=== PATIENT | male | born 1935 | race Caucasian/White ===

== ENCOUNTER → 2023-06-01 11:30 | Outpatient (REF) | payer MEDICARE, BC, SELFPAY ==
[2023-06-01 14:35] LABS: PSA, Total - Diagnostic 6.66 ng/ml (0.0-4.0)
== END ==
LOC: OLABPATH 11:30
PROVIDERS: ATTENDING PHYSICIAN Internal Medicine
DX: N18.9 Chronic kidney disease, unspecified (principal); I10 Essential (primary) hypertension; E11.00 Type 2 diabetes mellitus with hyperosmolarity without nonketotic hyperglycemic-hyperosmolar coma (NKHHC); N40.0 Benign prostatic hyperplasia without lower urinary tract symptoms; N40.1 Benign prostatic hyperplasia with lower urinary tract symptoms
CPT/HCPCS: 36415; 84153

== ENCOUNTER → 2023-06-06 15:39 | Outpatient (REF) | payer MEDICARE, BC, SELFPAY | LOC: HWRAD 15:39 | PROVIDERS: ATTENDING PHYSICIAN Internal Medicine Critical Care Medicine; FAMILY PHYSICIAN Internal Medicine | DX: R06.02 Shortness of breath (principal); R93.89 Abnormal findings on diagnostic imaging of other specified body structures | CPT/HCPCS: 71250 ==

== ENCOUNTER → 2023-08-15 10:54 | Outpatient (REF) | payer MEDICARE, BC, SELFPAY ==
[2023-08-15 12:29] LABS: % Basophils 0.8 % (0-2); % Eosinophils 2.5 % (0-6); % Immature Granulocytes 0.3 % (0-0.5); % Lymphocytes 17.9 % (20.5-51.1); % Monocytes 6.9 % (1.7-9.3); % Neutrophils 71.6 % (42.2-75.2); Absolute Basophils 0.1 10^3/uL (0-0.2); Absolute Eosinophils 0.2 10^3/uL (0-0.7); Absolute Lymphocytes 1.1 10^3/uL (1.2-3.4); Absolute Monocytes 0.4 10^3/uL (0.1-0.6); Absolute Neutrophils 4.2 10^3/uL (1.4-6.5); Hematocrit 33.9 % (39.0-52.0); Hemoglobin 11.4 g/dL (13.0-18.0); Mean Corp Hgb Conc. 33.6 g/dL (33.0-37.0); Mean Corpuscular Hgb 31.1 pg (27.0-31.0); Mean Corpuscular Volume 92.6 fL (80.0-94.0); Mean Platelet Volume 10.1 fL (7.4-10.4); Nucleated Red Blood Cells % 0 % (-); Platelet Count 207 10^3/uL (130-400); Red Blood Cell Count 3.66 10^6/uL (4.70-6.10); White Blood Cell Count 5.9 10^3/uL (4.8-10.8)
[2023-08-15 12:45] LABS: ALT (SGPT) 19 U/L (0-50); AST (SGOT) 16 U/L (17-59); Albumin 3.2 g/dl (3.5-5.0); Alkaline Phosphatase 206 U/L (38-126); Blood Urea Nitrogen 23 mg/dl (9-20); Carbon Dioxide 29 mmol/L (22-30); Chloride 106 mmol/L (98-107); Glucose 154 mg/dl (70-99); Potassium 4.4 mmol/L (3.5-5.1); Sodium 138 mmol/L (135-145); Total Bilirubin 1.1 mg/dl (0.2-1.3); Total Protein 6.5 g/dl (6.3-8.2); eGFR 58.89
[2023-08-15 13:14] LABS: TSH 1.35 uIU/ml (0.47-4.68)
== END ==
LOC: OLABPATH 10:54
PROVIDERS: ATTENDING PHYSICIAN Internal Medicine
DX: I50.9 Heart failure, unspecified (principal); E03.9 Hypothyroidism, unspecified; I48.20 Chronic atrial fibrillation, unspecified
CPT/HCPCS: 36415; 80053; 84443; 85025

== ENCOUNTER → 2023-09-06 17:30 | Outpatient (REF) | payer MEDICARE, BC, SELFPAY ==
[2023-09-06 17:50] LABS: % Basophils 0.5 % (0-2); % Eosinophils 2.2 % (0-6); % Immature Granulocytes 0.3 % (0-0.5); % Lymphocytes 15.5 % (20.5-51.1); % Monocytes 7.3 % (1.7-9.3); % Neutrophils 74.2 % (42.2-75.2); Absolute Eosinophils 0.1 10^3/uL (0-0.7); Absolute Lymphocytes 0.9 10^3/uL (1.2-3.4); Absolute Monocytes 0.4 10^3/uL (0.1-0.6); Absolute Neutrophils 4.4 10^3/uL (1.4-6.5); Hematocrit 35.3 % (39.0-52.0); Hemoglobin 11.3 g/dL (13.0-18.0); Mean Corpuscular Hgb 30.7 pg (27.0-31.0); Mean Corpuscular Volume 95.9 fL (80.0-94.0); Mean Platelet Volume 10.7 fL (7.4-10.4); Nucleated Red Blood Cells % 0 % (-); Platelet Count 193 10^3/uL (130-400); Red Blood Cell Count 3.68 10^6/uL (4.70-6.10); Red Cell Dist. Width 14.9 % (11.5-14.5); White Blood Cell Count 5.9 10^3/uL (4.8-10.8)
[2023-09-06 18:02] LABS: ALT (SGPT) 17 U/L (0-50); AST (SGOT) 17 U/L (17-59); Albumin 3.4 g/dl (3.5-5.0); Alkaline Phosphatase 170 U/L (38-126); Blood Urea Nitrogen 24 mg/dl (9-20); Calcium 8.9 mg/dl (8.4-10.2); Carbon Dioxide 23 mmol/L (22-30); Chloride 104 mmol/L (98-107); Glucose 216 mg/dl (70-99); Potassium 4.7 mmol/L (3.5-5.1); Sodium 138 mmol/L (135-145); Total Bilirubin 0.9 mg/dl (0.2-1.3); Total Protein 6.7 g/dl (6.3-8.2); eGFR 58.89
== END ==
LOC: OLABPATH 17:30
PROVIDERS: ATTENDING PHYSICIAN Internal Medicine
DX: I10 Essential (primary) hypertension (principal); I48.91 Unspecified atrial fibrillation
CPT/HCPCS: 36415; 80053; 85025

== ENCOUNTER 2023-10-23 11:31 | Emergency (ER) | payer MEDICARE, BC, SELFPAY ==
[2023-10-23] VITALS (9 sets, daily range): BP systolic 113–140; BP diastolic 71–98; BMI 26.0
--- NOTE | 2023-10-23 11:51 | ED.GENMED ---
History of Present Illness
General
Chief Complaint: Abdominal Symptoms
Source: patient
Time Seen by Provider: 10/23/23 11:34
History of Present Illness
History of Present Illness:
88-year-old male presents emergency department complaints of right lower quadrant pain 'on and off' for the past 3 days, especially in the morning. He says sometimes it feels better when he moves around. Since arrival to the emergency department
the pain is just noticeable but very very mild. He has mild anorexia, and feels a dry mouth. He denies nausea, vomiting, fever, chills, chest pain, cough, sore throat, rhinorrhea, pain with urination, hematuria, constipation, diarrhea, or other
complaints. Patient has a history of known bilateral pleural effusions and states that sometimes it feels like he cannot fully get a deep breath although does not feel that way at this time.
Past History
Past History
ED Past Medical History: Arrthythmia (Atrial fibrillation), Cancer (Colon cancer), Hypercholesterolemia and NIDDM
ED Past Surgical History: Bowel resection and Orthopedic (Bilateral hip replacements, knee replacement, ankle surgery)
Social History
Tobacco: Non-smoker
Alcohol: Occasional
Drug: None
Personal:
Living: intermediate
Employment: Retired
Phy Exam
Physical Exam
Physical Exam:
GENERAL: Alert , in no apparent distress
EYE: pupils equal and reactive, left eye with vertical deviation baseline
NECK: Supple, no significant adenopathy.
ENT: o/p clr, mm dry
CARDIAC: Regular rate and rhythm .
LUNGS: Clear breath sounds bilaterally, no acute respiratory distress, no wheezes/rales/rhonchi, decreased breath sounds noted on right side, speaks in full sentences easily, no retractions
ABDOMEN: Soft, moderate right upper and lower quadrant tenderness, no r/g, no cvat
NEUROLOGICAL: Alert and oriented, no focal neuro deficits
SKIN: Warm and dry, skin intact.
MUSCULOSKELETAL: No edema, well perfused.
PSYCH: Normal and appropriate interaction.
Course
Orders/Labs/Results
Orders:
Orders
10/23/23 11:37
IV Insert/Care/Rem.- Treatment PRN
10/23/23 11:39
Complete Blood Count/With Diff Urgent
Comprehensive Metabolic Panel Urgent
Lipase Urgent
10/23/23 11:54
Cardiac Monitoring- Treatment ONCE
0.9% Sodium Chloride 250 ml [Nss] 250 ml IV BOLUS
10/23/23 11:55
CT Abd/Pel (IV only)-DH only Urgent
Comment:
Reason For Exam: rlq pain
10/23/23 12:56
UA Reflex to Culture [Urinalysis Reflex To Culture] Stat
Date Specimen was Collected: 10/23/23
Time Specimen was Collected: 12:55
Urine Microscopic Reflex Cult Stat
Urine Culture Stat
KALI Source: U
Specimen Description:
Date Specimen was Collected: 10/23/23
Time Specimen was Collected: 12:55
Abnormal Lab Results
10/23/23 10/23/23
11:39 12:56
RBC 3.88 L 10^6/uL
(4.70-6.10)
Hgb 11.7 L g/dL
(13.0-18.0)
Hct 35.3 L %
(39.0-52.0)
Absolute Lymphs (auto) 0.9 L 10^3/uL
(1.2-3.4)
Neutrophils % 76.1 H %
(42.2-75.2)
Lymphocytes % 12.9 L %
(20.5-51.1)
Glucose 154 H mg/dl
(70-99)
Total Bilirubin 1.6 H mg/dl
(0.2-1.3)
Alkaline Phosphatase 191 H U/L
(38-126)
Albumin 3.4 L g/dl
(3.5-5.0)
Lipase 22 L U/L
(23-300)
Ur Occult Blood Reflex 4+ A
(Negative)
Urine Urobilinogen 3+ A
(Neg - 1+)
Leukocyte Esterase Rfl 2+ A
(Negative)
Urine RBC 21-25 A /HPF
(0-2)
Urine WBC (Reflex) 80-90 A /HPF
(0-5)
10/23/23 11:39
10/23/23 11:39
Vital Signs
Initial and Last Documented VS:
Initial Vital Signs
Temp Pulse Resp
97.9 F 76 14
10/23/23 11:33 10/23/23 11:33 10/23/23 11:33
Last Documented Vital Signs
Temp Pulse Resp BP Pulse Ox
97.9 F 78 17 119/98 93
10/23/23 11:33 10/23/23 14:15 10/23/23 14:15 10/23/23 14:00 10/23/23 11:38
*Critical Care Note
Total Time (30-74mins, 75-104mins- exclusive of procedures): Not Applicable
Update Note
Update Note:
Patient presents to the Emergency Department with abdominal pain
Number and Complexity of Problems Addressed at the Encounter
� Chronic conditions affecting care:
� Acute Exacerbation and/or Progression of Chronic Illness:
� Differential Diagnosis includes: But not limited to appendicitis, cholecystitis, pyelonephritis, nephrolithiasis, colitis, hernia, etc. it is
Amount and/or Complexity of Data to be Reviewed and Analyzed
� I performed an independent evaluation of and my interpretation is:
EKG:
CT
IMPRESSION:
Moderate right pleural effusion (increased) and small left pleural effusion (without significant change) in comparison to prior CT April 03, 2023. Accompanying bilateral lower lobe subsegmental atelectasis, right greater than left.
No intestinal obstruction or free air. Colonic diverticulosis.
No right lower quadrant inflammatory changes.
No findings to suggest obstructive uropathy bilaterally.
Rectum filled with stool and mildly dilated, markedly limited in evaluation as a result of beam hardening artifact from bilateral hip arthroplasties. Cannot exclude stercoral colitis.
Small bilateral simple renal cysts and additional subcentimeter low-attenuation left renal lesions too small to characterize.
Prior cholecystectomy.
Xrays:
Laboratory Studies: Generally unremarkable, nonspecific LFT elevation mild
Other: ua suggestive of UTI given 80-90 wbc, le + etc
� Review of other/old records reveals:
� Clinical information was obtained by an independent historian: Bedside paperwork
� Prescriptions/Medications Considered but not given:
� Further testing considered but not performed:
Risk of Complications and/or Morbidity or Mortality of Patient Management
� Social determinants of health affecting care:
� Discussion with other providers (PCP, Hospitalists, Consultants, etc):
� Escalation of care including admission/observation vs risk of discharge considered:253pm. Pt aware of incresaing pleural effusion, states md aware and is managing as outpt, does not have sob/hypoxia, etc. Pt denies abd pain
and would like to go home, feels relieved appendix not enlarged, and states came to have this evaluated. Of note, u/a c/w uti, which may acocunt for sxs, will empirically tx while awaiting cx. D/w pt reasons to rted an dimport of f/u.
ED Attending Note
-
Portions of this chart may have been created with voice recognition software.� Occasional wrong word or��sound alike� substitutions may have occurred due to the inherent limitations of voice recognition software.
Discharge Plan
Departure
Patient Disposition: Home (Routine Discharge)
Date of Disposition: 10/23/23
Time of Disposition: 14:59
Patient with high blood pressure during this ER visit?: Yes
Condition: Good
Discharge Problem:
UTI, Abdominal pain
Instructions: Urinary Tract Infection, Adult ED, Abdominal Pain, BLOOD PRESSURE
Prescriptions:
New
amoxicillin-pot clavulanate 875-125 mg tablet
1 tab PO BID Qty: 14 0RF
No Action
tamsulosin 0.4 MG capsule
0.4 mg PO HS
atorvastatin [Lipitor] 40 mg Tablet
40 mg PO HS
acetaminophen [Tylenol] 325 mg Tablet
650 mg PO Q6HPRN PRN (Reason: mild pain/fever)
loperamide 2 mg Capsule
2 mg PO HS
magnesium hydroxide [Milk of Magnesia] 400 mg/5 mL Suspension
2,400 mg PO [id number] PRN (Reason: no bm on 3rd day)
duloxetine 20 mg Capsule,Delayed Release(Dr/Ec)
20 mg PO HS
ketoconazole 2 % Shampoo
1 applic TOPICAL .2-3 TIMES A WEEK
cyanocobalamin (vitamin B-12) 1,000 mcg Tablet
1,000 mcg PO DAILY
allopurinol 100 mg Tablet
100 mg PO DAILY
ferrous sulfate 325 mg (65 mg iron) Tablet
325 mg PO BID
alum-mag hydroxide-simeth [Mag-Al Plus] 200-200-20 mg/5 mL Suspension
30 ml PO Q4HPRN PRN (Reason: indigestion)
ketoconazole 2 % Cream
1 applic TOPICAL DAILY
vitamin E 268 mg (400 unit) Capsule
180 mg PO DAILY
insulin lispro 100 unit/mL Insulin Pen
0 sliding scale dose SC AC
Rx Instructions:
200-249=2units, 250-299=4units, 300-349=6units, 350-400=8units
cholecalciferol (vitamin D3) [Vitamin D3] 25 mcg (1,000 unit) Tablet
25 mcg PO DAILY
PreserVision AREDS-2 250-90-40-1 mg Capsule
1 tab PO DAILY
amiodarone [Pacerone] 200 mg tablet
200 mg PO DAILY
metoprolol succinate 25 mg tablet extended release 24 hr
12.5 mg PO DAILY
Eliquis 2.5 mg tablet
2.5 mg PO BID
loperamide 2 mg Capsule
2 mg PO DAILYPRN PRN (Reason: diarrhea)
Rx Instructions:
take 2 caps after first loose stool, then 1 cap after each loose stool
Referrals:
Umair Frias MD [Family Provider] - Follow up in 2-3 days
Activity Restrictions/Additional Instructions:
IF YOU DEVELOP INCREASING/NEW/PERSISTENT PAIN, FEVER, VOMITING, DIFFICULTY URINATING, BLEEDING, OR OTHER WORRISOME SIGNS, GO TO THE ER IMMEDIATELY! YOU HAVE AN INCREASE IN THE AMOUNT OF FLUID IN YOUR CHEST, WHICH NEEDS CLOSE FOLLOW UP.
Interventions
Interventions:
*Risk Screen - Suicide Last Done: 10/23/23 11:33
*General Assessment Last Done: 10/23/23 11:33
*Neglect/Abuse Screening Last Done: 10/23/23 11:33
*ED COVID-19 Vaccine History Last Done: 10/23/23 11:33
WW-Cwklsk-Qoptlrnzep Assessment Last Done: 10/23/23 11:33
Discharge Date and Time
Print Language: PORTUGUESE
[2023-10-23] MEDS: NSS 250 IV (12:05)
[2023-10-23 12:10] LABS: ALT (SGPT) 15 U/L (0-50); AST (SGOT) 17 U/L (17-59); Albumin 3.4 g/dl (3.5-5.0); Alkaline Phosphatase 191 U/L (38-126); Blood Urea Nitrogen 18 mg/dl (9-20); Carbon Dioxide 29 mmol/L (22-30); Chloride 102 mmol/L (98-107); Estimated Creatinine Clearance 50 ml/min; Glucose 154 mg/dl (70-99); Lipase 22 U/L (23-300); Potassium 4.5 mmol/L (3.5-5.1); Sodium 137 mmol/L (135-145); Total Bilirubin 1.6 mg/dl (0.2-1.3); Total Protein 6.8 g/dl (6.3-8.2); eGFR > 60.00
[2023-10-23 12:17] LABS: % Basophils 0.6 % (0-2); % Eosinophils 2.7 % (0-6); % Immature Granulocytes 0.3 % (0-0.5); % Lymphocytes 12.9 % (20.5-51.1); % Monocytes 7.4 % (1.7-9.3); % Neutrophils 76.1 % (42.2-75.2); Absolute Eosinophils 0.2 10^3/uL (0-0.7); Absolute Lymphocytes 0.9 10^3/uL (1.2-3.4); Absolute Monocytes 0.5 10^3/uL (0.1-0.6); Absolute Neutrophils 5.1 10^3/uL (1.4-6.5); Hematocrit 35.3 % (39.0-52.0); Hemoglobin 11.7 g/dL (13.0-18.0); Mean Corp Hgb Conc. 33.1 g/dL (33.0-37.0); Mean Corpuscular Hgb 30.2 pg (27.0-31.0); Mean Platelet Volume 9.5 fL (7.4-10.4); Nucleated Red Blood Cells % 0 % (-); Platelet Count 250 10^3/uL (130-400); Red Blood Cell Count 3.88 10^6/uL (4.70-6.10); Red Cell Dist. Width 14.4 % (11.5-14.5); White Blood Cell Count 6.7 10^3/uL (4.8-10.8)
[2023-10-23 13:16] LABS: Urine Albumin Trace (Neg - Trace); Urine Bilirubin Negative (Negative); Urine Character Slightly Cloudy (Clear); Urine Color Yellow; Urine Glucose Negative (Negative); Urine Ketone Negative (Negative); Urine Leukocyte 2+ (Negative); Urine Nitrite Negative (Negative); Urine Occult Blood 4+ (Negative); Urine Urobilinogen 3+ (Neg - 1+); Urine pH 6.5 (5.0-9.0)
[2023-10-23 14:46] LABS: Urine Red Blood Cell 21-25 /HPF (0-2)
[2023-10-23 14:47] LABS: Urine White Cell 80-90 /HPF (0-5)
== END 2023-10-23 19:24 | disposition home or self-care (01) ==
LOC: EMR 11:31
PROVIDERS: EMERGENCY PHYSICIAN Emergency Medicine; FAMILY PHYSICIAN Internal Medicine
DX: N39.0 Urinary tract infection, site not specified (principal); R10.31 Right lower quadrant pain; J90 Pleural effusion, not elsewhere classified; I48.91 Unspecified atrial fibrillation; E78.00 Pure hypercholesterolemia, unspecified; E11.9 Type 2 diabetes mellitus without complications; R68.2 Dry mouth, unspecified; Z85.038 Personal history of other malignant neoplasm of large intestine; Z90.49 Acquired absence of other specified parts of digestive tract; Z96.643 Presence of artificial hip joint, bilateral; Z96.659 Presence of unspecified artificial knee joint
CPT/HCPCS: 99284; 74177; 80053; 81003; 81015; 83690; 85025; 87086; Q9967

== ENCOUNTER → 2023-11-01 11:25 | Outpatient (REF) | payer MEDICARE, BC, SELFPAY ==
[2023-11-01 13:26] LABS: ALT (SGPT) 15 U/L (0-50); AST (SGOT) 19 U/L (17-59); Albumin 3.2 g/dl (3.5-5.0); Alkaline Phosphatase 169 U/L (38-126); Blood Urea Nitrogen 17 mg/dl (9-20); Calcium 8.8 mg/dl (8.4-10.2); Carbon Dioxide 27 mmol/L (22-30); Chloride 102 mmol/L (98-107); Glucose 157 mg/dl (70-99); Potassium 4.2 mmol/L (3.5-5.1); Sodium 136 mmol/L (135-145); Total Bilirubin 1.1 mg/dl (0.2-1.3); Total Protein 6.6 g/dl (6.3-8.2); eGFR > 60.00
[2023-11-01 13:43] LABS: % Basophils 0.7 % (0-2); % Eosinophils 3.1 % (0-6); % Immature Granulocytes 0.4 % (0-0.5); % Lymphocytes 10.2 % (20.5-51.1); % Monocytes 8.4 % (1.7-9.3); % Neutrophils 77.2 % (42.2-75.2); Absolute Basophils 0.1 10^3/uL (0-0.2); Absolute Eosinophils 0.2 10^3/uL (0-0.7); Absolute Lymphocytes 0.7 10^3/uL (1.2-3.4); Absolute Monocytes 0.6 10^3/uL (0.1-0.6); Absolute Neutrophils 5.2 10^3/uL (1.4-6.5); Hematocrit 31.1 % (39.0-52.0); Hemoglobin 10.5 g/dL (13.0-18.0); Mean Corp Hgb Conc. 33.8 g/dL (33.0-37.0); Mean Corpuscular Hgb 30.3 pg (27.0-31.0); Mean Corpuscular Volume 89.9 fL (80.0-94.0); Mean Platelet Volume 9.7 fL (7.4-10.4); Nucleated Red Blood Cells % 0 % (-); Platelet Count 289 10^3/uL (130-400); Red Blood Cell Count 3.46 10^6/uL (4.70-6.10); Red Cell Dist. Width 14.3 % (11.5-14.5); White Blood Cell Count 6.8 10^3/uL (4.8-10.8)
== END ==
LOC: OLABPATH 11:25
PROVIDERS: ATTENDING PHYSICIAN Internal Medicine
DX: I10 Essential (primary) hypertension (principal); E78.49 Other hyperlipidemia
CPT/HCPCS: 36415; 80053; 85025

== ENCOUNTER → 2023-11-06 07:09 | Outpatient (REF) | payer MEDICARE, BC, SELFPAY | LOC: RAD 07:09 | PROVIDERS: ATTENDING PHYSICIAN Internal Medicine | DX: E04.1 Nontoxic single thyroid nodule (principal) | CPT/HCPCS: 78014; A9516 ==

== ENCOUNTER 2023-11-20 20:28 | Inpatient (IN) | payer MEDICARE, BC, SELFPAY ==
[2023-11-20 13:27] VITALS: BMI 24.7
[2023-11-20 13:43] VITALS: BP 111/66
[2023-11-20 13:54] LABS: % Basophils 0.2 % (0-2); % Eosinophils 0.9 % (0-6); % Immature Granulocytes 0.5 % (0-0.5); % Lymphocytes 6.9 % (20.5-51.1); % Neutrophils 83.5 % (42.2-75.2); Absolute Eosinophils 0.1 10^3/uL (0-0.7); Absolute Lymphocytes 0.6 10^3/uL (1.2-3.4); Absolute Monocytes 0.7 10^3/uL (0.1-0.6); Absolute Neutrophils 7.2 10^3/uL (1.4-6.5); Hematocrit 31.1 % (39.0-52.0); Hemoglobin 10.6 g/dL (13.0-18.0); Mean Corp Hgb Conc. 34.1 g/dL (33.0-37.0); Mean Corpuscular Hgb 29.9 pg (27.0-31.0); Mean Corpuscular Volume 87.6 fL (80.0-94.0); Mean Platelet Volume 9.7 fL (7.4-10.4); Nucleated Red Blood Cells % 0 % (-); Platelet Count 279 10^3/uL (130-400); Red Blood Cell Count 3.55 10^6/uL (4.70-6.10); Red Cell Dist. Width 14.8 % (11.5-14.5); White Blood Cell Count 8.7 10^3/uL (4.8-10.8)
--- NOTE | 2023-11-20 14:09 | ED.GENMED ---
History of Present Illness
General
Chief Complaint: Abdominal Pain
Time Seen by Provider: 11/20/23 13:43
History of Present Illness
History of Present Illness:
88-year-old male with history of atrial fibrillation, CKD, biq-arozvbk-cdvaeapwy diabetes, hypertension, and hyperlipidemia presents to the emergency department for evaluation of lower abdominal pain for the past several days. He had a similar
presentation 1 month ago and reports the pain is the same, at that time was diagnosed with a urinary tract infection and discharged. CT scan at that time was unremarkable. He denies any fevers or chills. States his appetite has been poor but this
has been ongoing for several weeks
Past History
Past History
ED Past Medical History: Arrthythmia (Atrial fibrillation), Cancer (Colon cancer), Hypercholesterolemia and NIDDM
ED Past Surgical History: Bowel resection and Orthopedic (Bilateral hip replacements, knee replacement, ankle surgery)
Social History
Tobacco: Non-smoker
Alcohol: Occasional
Drug: None
Personal:
Living: retirement
Employment: Retired
Review of Systems
Review of Systems
Allergies reviewed?: Yes
All Other Systems: ROS reviewed and negative except as documented in HPI and ROS
Phy Exam
Physical Exam
Physical Exam:
GEN: Well appearing, NAD, WDWN
Eyes: PERRLA, EOMs intact, no scleral icterus
HENT: NCAT, oral mucosa moist
Lungs: CTAB, no wheezes, rales, rhonchi, normal chest wall excursion
Cardiac: RRR, no M/R/G, no peripheral edema. Radial pulses 2+ bilat
Abdomen: Soft, focal tenderness to the right lower quadrant
Neuro: AO x 3
MSK: No gross deformity or ecchymosis. No edema. No digital clubbing
Skin: No rashes, petechiae. Normal color, no pallor or jaundice.
Psych: Calm, cooperative, proper hygiene
Course
Orders/Labs/Results
Orders:
Orders
11/20/23 13:46
Basic Metabolic Panel Urgent
Complete Blood Count/With Diff Urgent
Lipase Urgent
11/20/23 15:27
Urinalysis Reflex To Culture Urgent
Date Specimen was Collected: 11/20/23
Time Specimen was Collected: 15:25
Urine Microscopic Reflex Cult Urgent
Urine Culture Urgent
KALI Source: U
Specimen Description:
Date Specimen was Collected: 11/20/23
Time Specimen was Collected: 15:25
11/20/23 17:25
CT Abd/Pel (IV only)-DH only Urgent
Comment:
Reason For Exam: RLQ pain
11/20/23 18:36
Piperacillin/Tazo 3.375 Gram [Zosyn] 3.375 gram in 50 ml IV NOW
11/20/23 19:14
Admit/Transfer Patient As Directed
Co-Sign Provider:
Level of Care: Inpatient admission
Assign to:: Telemetry
Physician / Group: [email or web address]
Diagnosis: Rectus sheath presumed abscess
Reason for Telemetry: Arrhythmia
Date to Stop Telemetry: 11/23/23
Time to Stop Telemetry: 11:00
Reason for Hospitalization: Rectus sheath presumed abscess
Suspect rectus sheath hematoma complicated by superinfection or abscess
Expected length of stay greater than two midnights?: Yes
ELOS- Estimated Length of Stay in days: 3
I certify the patient meets the requirements for IP care: Yes
11/20/23 19:17
Code Status As Directed
Resuscitation Status: Do not resuscitate
Based on pt advanced directive or healthcare POA form: Yes
DNR Bracelet Application ONCE
11/23/23 11:00
DC Protocol for Telemetry ONCE
Abnormal Lab Results
11/20/23 11/20/23
13:46 15:27
RBC 3.55 L 10^6/uL
(4.70-6.10)
Hgb 10.6 L g/dL
(13.0-18.0)
Hct 31.1 L %
(39.0-52.0)
RDW 14.8 H %
(11.5-14.5)
Absolute Neuts (auto) 7.2 H 10^3/uL
(1.4-6.5)
Absolute Lymphs (auto) 0.6 L 10^3/uL
(1.2-3.4)
Absolute Monos (auto) 0.7 H 10^3/uL
(0.1-0.6)
Neutrophils % 83.5 H %
(42.2-75.2)
Lymphocytes % 6.9 L %
(20.5-51.1)
Sodium 132 L mmol/L
(135-145)
BUN 26 H mg/dl
(9-20)
Glucose 208 H mg/dl
(70-99)
Lipase 16 L U/L
(23-300)
Urine Ketones Trace A
(Negative)
Ur Occult Blood Reflex Trace A
(Negative)
Urine Bilirubin 1+ A
(Negative)
Urine Urobilinogen 3+ A
(Neg - 1+)
Leukocyte Esterase Rfl 2+ A
(Negative)
Urine RBC 7-10 A /HPF
(0-2)
Urine WBC (Reflex) 30-40 A /HPF
(0-5)
11/20/23 13:46
11/20/23 13:46
Vital Signs
Initial and Last Documented VS:
Initial Vital Signs
Temp Pulse Resp BP Pulse Ox
97.5 F 78 13 111/66 95
11/20/23 13:43 11/20/23 13:43 11/20/23 13:43 11/20/23 13:43 11/20/23 13:43
Last Documented Vital Signs
Temp Pulse Resp BP Pulse Ox
97.5 F 85 19 121/78 96
11/20/23 18:54 11/20/23 20:00 11/20/23 19:45 11/20/23 17:00 11/20/23 18:54
MDM/Problems Addressed
MDM/Problems Addressed:
Imaging is suspicious for a rectus sheath fluid collection most likely abscess given the rapid development and lack of trauma compared to scan from 1 month ago. Will admit on empiric IV antibiotics for IR consultation and further management as
appropriate
*Critical Care Note
Total Time (30-74mins, 75-104mins- exclusive of procedures): Not Applicable
ED Attending Note
-
Portions of this chart may have been created with voice recognition software.� Occasional wrong word or��sound alike� substitutions may have occurred due to the inherent limitations of voice recognition software.
Discharge Plan
Departure
Patient Disposition: Admit
Date of Disposition: 11/20/23
Time of Disposition: 18:36
Presentation/result/management discussed w/ accepting MD/DO: Hospitalist
Discharge Problem:
Abscess of rectus sheath
Prescriptions:
No Action
tamsulosin 0.4 MG capsule
0.4 mg PO HS
atorvastatin [Lipitor] 40 mg Tablet
40 mg PO HS
acetaminophen [Tylenol] 325 mg Tablet
650 mg PO Q6HPRN MDD 3000 mg PRN (Reason: mild pain)
loperamide 2 mg Capsule
2 mg PO HS
magnesium hydroxide [Milk of Magnesia] 400 mg/5 mL Suspension
30 ml PO [id number] PRN (Reason: no bm on 3rd day)
duloxetine 20 mg Capsule,Delayed Release(Dr/Ec)
20 mg PO HS
ketoconazole 2 % Shampoo
1 applic TOPICAL .2-3 TIMES A WEEK
cyanocobalamin (vitamin B-12) 1,000 mcg Tablet
1,000 mcg PO DAILY
allopurinol 100 mg Tablet
100 mg PO DAILY
ferrous sulfate 325 mg (65 mg iron) Tablet
325 mg PO BID
alum-mag hydroxide-simeth [Mag-Al Plus] 200-200-20 mg/5 mL Suspension
30 ml PO Q4HPRN PRN (Reason: indigestion)
ketoconazole 2 % Cream
1 applic TOPICAL DAILY
vitamin E 268 mg (400 unit) Capsule
180 mg PO DAILY
insulin lispro 100 unit/mL Insulin Pen
0 sliding scale dose SC AC
Rx Instructions:
200-249=2units, 250-299=4units, 300-349=6units, 350-400=8units
cholecalciferol (vitamin D3) [Vitamin D3] 25 mcg (1,000 unit) Tablet
25 mcg PO DAILY
PreserVision AREDS-2 250-90-40-1 mg Capsule
1 tab PO DAILY
amiodarone [Pacerone] 200 mg tablet
200 mg PO DAILY
metoprolol succinate 25 mg tablet extended release 24 hr
12.5 mg PO DAILY
Eliquis 2.5 mg tablet
2.5 mg PO BID
loperamide 2 mg Capsule
2 mg PO DAILYPRN PRN (Reason: diarrhea)
Rx Instructions:
take 2 caps after first loose stool, then 1 cap after each loose stool
Referrals:
Patrick Graves DO [Family Provider] -
Discharge Date and Time
Print Language: ESTONIAN
[2023-11-20 14:12] LABS: Blood Urea Nitrogen 26 mg/dl (9-20); Calcium 8.5 mg/dl (8.4-10.2); Carbon Dioxide 24 mmol/L (22-30); Chloride 103 mmol/L (98-107); Estimated Creatinine Clearance 62 ml/min; Glucose 208 mg/dl (70-99); Lipase 16 U/L (23-300); Sodium 132 mmol/L (135-145); eGFR > 60.00
[2023-11-20 15:32] VITALS: BP 124/73
[2023-11-20 16:00] VITALS: BP 115/72
[2023-11-20 16:01] LABS: Urine Albumin Trace (Neg - Trace); Urine Bilirubin 1+ (Negative); Urine Character Slightly Cloudy (Clear); Urine Color Amber; Urine Glucose Negative (Negative); Urine Ketone Trace (Negative); Urine Leukocyte 2+ (Negative); Urine Nitrite Negative (Negative); Urine Occult Blood Trace (Negative); Urine Specific Gravity 1.025 (<1.030); Urine Urobilinogen 3+ (Neg - 1+)
[2023-11-20 17:00] VITALS: BP 121/78
[2023-11-20 17:25] LABS: Urine Mucus Few
[2023-11-20 17:26] LABS: Urine White Cell 30-40 /HPF (0-5)
[2023-11-20] MEDS: ZOSYN 50 IV (18:50)
--- NOTE | 2023-11-20 19:10 | HPS.HSE ---
Family Physician
-
Family Physician: Patrick Graves
Chief Complaint
-
persistent lower abdominal pain
History of Present Illness
HPI
88M on chr Eliquis for Prx AF, IDDM, HX b/l pleural effusion seen at ER evaluation of lower abdominal pain for the past several days. He presents to ER for simialr pain. Dxed clinical UTI but mixed floral growth seen at ER on treated with
Augmentin for 2 weeks as out patient as of 10/23/23. Unremarkable CT AP on 10/23/23.
- denied trauma
ROS
denies any fevers or chills.
Poor appetite for several weeks
Medical History
Past Medical History
Past Medical History: Reports Arrhythmia (atrial fibrillation), Cancer (colon), HTN, Hypercholesterolemia and IDDM
Past Surgical History: Reports Bowel Resection and Orthopedic (bilateral hip replacements, knee replacement, ankle surgery)
Social History
Tobacco: Non-smoker
Alcohol: Occasional
Drug: None
Personal: ( this past March)
Living: Longterm (Assisted living/nursing facility)
Employment: Retired
Family History
Family History: Not pertinent
Allergies / Home Medications
Allergies reflects when Allergies were last updated in [facility].
Home Medications with original date entered in [facility]
Allergy/Medication List:
Allergies
Allergy/AdvReac Type Severity Reaction Status Date / Time
oyster Allergy Unknown Uncoded 09/13/21 16:30
Home Medications
allopurinol 300 mg tablet 100 mg PO DAILY 06/05/19
metoprolol succinate 25 mg tablet,extended release 24 hr 12.5 mg PO BID 06/05/19
apixaban 5 mg tablet (Eliquis) 5 mg PO BID 01/17/20
ascorbate calcium (vitamin C) 500 mg tablet 500 mg PO DAILY 07/17/21
atorvastatin 40 mg tablet 40 mg PO DAILY 07/17/21
cholecalciferol (vitamin D3) 25 mcg (1,000 unit) capsule (Vitamin D3) 1,000 unit PO DAILY 07/17/21
cyanocobalamin (vitamin B-12) 2,000 mcg tablet 2,000 mcg PO DAILY 07/17/21
dapagliflozin 10 mg tablet (Farxiga) 10 mg PO DAILY 07/17/21
furosemide 20 mg tablet 20 mg PO DAILY 07/17/21
insulin glargine 100 unit/mL subcutaneous solution (Lantus U-100 Insulin) 10 units SC HS 07/17/21
insulin lispro 100 unit/mL subcutaneous pen (Humalog KwikPen (U-100) Insulin) 0 units SC TID 07/17/21
linagliptin 5 mg tablet (Tradjenta) 5 mg PO DAILY 07/17/21
metformin 500 mg tablet 500 mg PO BID 07/17/21
tamsulosin 0.4 mg capsule 0.4 mg PO DAILY 07/17/21
vit A 7,160 unit-vit C 113 mg-vit N-yyxo-fbsedr-lutein 0.5 mg tablet (Ocular Vitamins) 1 ea PO DAILY 07/17/21
vitamin E 268 mg (400 unit) capsule 400 unit PO DAILY 07/17/21
Review of Systems
-
Constitutional: Reports No Symptoms
EENT: Reports No Symptoms
Respiratory: Reports No Symptoms
Cardiac: Reports No Symptoms
Abdomen/GI: Reports Abdominal Pain
: Reports No Symptoms
Musculoskeletal: Reports No Symptoms
Skin: Reports No Symptoms
Neurological: Reports No Symptoms
Endocrine: Reports No Symptoms
Hematologic/Lymphatic: Reports No Symptoms
Psych: Reports No Symptoms
Physical Exam
Vital Signs
Vital Signs
Temp Pulse Resp BP Pulse Ox
97.5 F 78 24 124/73 96
11/20/23 18:54 11/20/23 18:54 11/20/23 18:54 11/20/23 15:32 11/20/23 18:54
Physical Exam
General: No Apparent Distress and Conversant
HEENT: NormoCephalic, Anicteric and Moist mucous membranes
Respiratory: Clear; No Wheezes, Rales or Rhonchi
Cardiac: S1/S2 and Regular Rhythm; No Murmur
Breast: Deferred by me
GI: Soft and Tender (focal tenderness to the right lower quadrant)
Rectal: Deferred by Provider
Genito-urinary: Deferred by me
Musculoskeletal: No Edema
Skin: Warm
Neuro: AO x 3 and Nonfocal/grossly intact
Psych: Calm
Laboratory Results
-
11/20/23 13:46
11/20/23 13:46
Laboratory Results
Total Bilirubin Cancelled 11/20/23 13:46
AST Cancelled 11/20/23 13:46
ALT Cancelled 11/20/23 13:46
Alkaline Phosphatase Cancelled 11/20/23 13:46
Lipase 16 U/L (23-300) L 11/20/23 13:46
Data Reviewed
-
CT Scan: Report Reviewed by me
Lab Data: Labs Reviewed by me
Old Records: Reviewed
Impression/Plan
-
Reviewed VS: Afebrile . Stable VSS
Data
WCC 8.7
Hgb 10.6 - baseline mid 10s
nl Plt
Na 132
BUN 26
nl Cr
nl eGFR
Abn UA with WCC 30-40, RBC 7-10 , 2 + LE, NEG Nitrites
CT Abd/Pel (IV only)-DH only
Area of heterogeneous density in the right lower quadrant most likely with epicenter in the right anterior abdominal wall, low-attenuation centrally and soft tissue density peripherally measuring approximately 5 x 9 x 4.5 cm. Most likely
differential diagnostic possibility would be a rectus sheath hematoma, possibly with superinfection or abscess proper. Rectus sheath mass would be unlikely but cannot be entirely excluded.
Bilateral renal cysts as well as additional subcentimeter low-attenuation renal lesions too small to characterize.
Moderate right pleural effusion without significant change. Decreased tiny left pleural effusion.
Prior cholecystectomy. Mild extrahepatic biliary tract dilatation which may be the sequela of prior cholecystectomy. Suggest correlation with LFTs.
Last hospitalist admission: 01/06/23 - 01/11/23
1. Tachyarrhythmia, atrial fibrillation with rapid ventricular response as well as ventricular tachycardia.
1. Cardiomyopathy with decreased ejection fraction of 45%-50%.
2. Type 2 diabetes, insulin requiring.
3. Chronic kidney disease, stage 3B, with baseline creatinine around 1.3 with acute kidney injury over this admission.
4. Urinary tract infection ruled out.
ASSESSMENT & PLAN
Rectus sheath presumed abscess
Suspect rectus sheath hematoma complicated by superinfection or abscess
- No prior HX MRSA screen
- Held Eliquis, Vit E
- Empiric IV Zosyn
- IR consult aspiration and Cx
- ID consult for ABx
HX Prx AF on Eliquis
HX Afib with RVR vs. VT:
- Status post electrical cardioversion resulting in bradycardia ( Dec 2022) needed dopamine gtt for bradycardia
- held eliquis and Vit E
- S/P ICD implant ( [facility] card)
Cardiomyopathy HX with EF 40-45
Last known echo 07/05 with LVEF 45-50% and global hypokinesis
- Lasix is not on current list
- daily Wt
Persistent abn UA; denied current dysurai, frequency and urgency
Recent UTI with mixed floral growth & ) s/p Augmentin for 2 weeks
- await UCx
- Currently on Zosyn for rectus sheath abscess
- await ID input
HX T2 DM with Insulin requirement
-Continue home medications: Farxiga, insulin Tradjenta
- add Low dose ISS PRN Basal bolus
DVT Px: SCD
Code: DNR confirmed by patient in the presence of [employer]ESS[employer] MACHINE [employer]EDER.
IP TLM
[2023-11-20 22:29] LABS: Glucose - Point of Care 181 mg/dl (70-99)
[2023-11-20] MEDS: FLOMAX 0.4 MG PO (22:46)
[2023-11-20] MEDS: LIPITOR 40 MG PO (22:46)
[2023-11-20] MEDS: CYMBALTA DELAYED RELEASE 20 MG PO (22:46)
[2023-11-20] MEDS: FEOSOL PO (23:17)
--- NOTE | 2023-11-20 23:19 | PTCARENOTE ---
Pt aaox2-3,forgetful at times, able to make his needs known.Pt doesn't like to be bothered much & wants to sleep. Pt irritated with staff,when trying to ask more admission questions.Pt on a bedalarm & fall precautions maintained.Call yarbrough in reach.
[2023-11-20 23:27] VITALS: BP 120/74
[2023-11-20 23:29] VITALS: BMI 23.7
[2023-11-21] VITALS (10 sets, daily range): BP systolic 71–115; BP diastolic 62–75; BMI 23.7; BMI 23.6
[2023-11-21] MEDS: ZOSYN 50 IV ×3 (01:02→11:00)
[2023-11-21 07:11] LABS: Glucose - Point of Care 159 mg/dl (70-99)
[2023-11-21 08:12] LABS: Hematocrit 31.6 % (39.0-52.0); Hemoglobin 10.6 g/dL (13.0-18.0); Mean Corp Hgb Conc. 33.5 g/dL (33.0-37.0); Mean Corpuscular Hgb 30.5 pg (27.0-31.0); Mean Corpuscular Volume 90.8 fL (80.0-94.0); Mean Platelet Volume 9.4 fL (7.4-10.4); Platelet Count 264 10^3/uL (130-400); Red Blood Cell Count 3.48 10^6/uL (4.70-6.10); Red Cell Dist. Width 14.8 % (11.5-14.5); White Blood Cell Count 7.3 10^3/uL (4.8-10.8)
[2023-11-21 08:13] LABS: INR 1.61
[2023-11-21] MEDS: NOVOLOG FLEXPEN-LOW RESISTANCE SC (08:30)
[2023-11-21] MEDS: NIZORAL SHAMPOO 120 ML TOPICAL (08:30)
[2023-11-21] MEDS: TOPROL XL 12.5 MG PO (08:31)
[2023-11-21] MEDS: FEOSOL 325 MG PO (08:31)
[2023-11-21] MEDS: PACERONE 200 MG PO (08:31)
[2023-11-21] MEDS: ZYLOPRIM 100 MG PO (08:31)
[2023-11-21 08:35] LABS: Blood Urea Nitrogen 23 mg/dl (9-20); Calcium 8.9 mg/dl (8.4-10.2); Carbon Dioxide 28 mmol/L (22-30); Chloride 102 mmol/L (98-107); Estimated Creatinine Clearance 55 ml/min; Glucose 142 mg/dl (70-99); Potassium 3.5 mmol/L (3.5-5.1); Sodium 135 mmol/L (135-145); eGFR > 60.00
[2023-11-21 08:37] LABS: Glycohemoglobin (HgbA1c) 8.2 % (4.0-5.6)
--- NOTE | 2023-11-21 10:40 | W.PN.HOSP.TC ---
Today's Communication/Plan
-
Hold Eliquis in preparation of IR aspiration
Continue with IV antibiotics, follow-up ID recs
Trend CBC
Assessment / Plan
Assessment / Plan
#Rectus sheath abscess versus hematoma
-Suspect rectus sheath hematoma complicated by superinfection or abscess
-Patient states he has had falls fairly recently, may be contributing as site of trauma
-No history of MRSA, MRSA screen was ordered and results are pending
-No signs of ongoing bleeding, hemoglobin stable per CBC this morning
-IR consulted, Eliquis held in anticipation of aspiration and culture
-Remains on IV Zosyn empirically for broad-spectrum coverage
-ID following
#H/O Paroxysmal AF on Eliquis
#H/O VT S/P AICD
-Status post electrical cardioversion resulting in bradycardia ( Dec 2022) needed dopamine gtt for bradycardia
-Home regimen includes reduced dose Eliquis for AC, low-dose metoprolol and amiodarone for rate/rhythm control
-Eliquis currently on hold for planned IR aspiration
-Hemodynamically stable, heart rate WNL and appears NSR this
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
-GDMT includes low-dose beta-andrés; no MARLY/ARB, MRA, SGLT2 at this
-Is not currently on any standing diuretic regimen; seems well compensated
-Appears euvolemic today, no indication for diuretics, will monitor I's and O's and weights
#Persistently abnormal UA
#Recent UTI with mixed fritz growth, s/p Augmentin for 2 weeks
-No symptoms at this time, suspect that this is colonization
-Remains on Zosyn for above issues, provides good urine coverage as well
#Insulin-dependent type 2 diabetes mellitus
-No recent A1c, no known micro or macrovascular complications
-Home medications include Farxiga, Tradjenta, short acting insulin
-Oral agents stopped on admission, started on ISS with as needed basal bolus
-Glucose at goal today
DVT Pphx: SCD
CODE STATUS: DNR
Diet: Regular
Anticipated Discharge: 24 - 48 hours
Subjective/Interval History
-
Date of Service: November 21, 2023
Seen and examined at the bedside. Minimal pain without provocation. Denies fevers or chills, denies chest pain or shortness of breath. Questioning when he can eat, per IR he does not need to be n.p.o., order was put in for a diet
Objective Data
-
Labs:
Laboratory Results
11/21/23
07:44
WBC 7.3
Hgb 10.6 L
Hct 31.6 L
Plt Count 264
PT 19.0 H
INR 1.61
Sodium 135
Potassium 3.5
Chloride 102
Carbon Dioxide 28
BUN 23 H
Creatinine 1.0
Glucose 142 H
Calcium 8.9
Vital Signs:
Vital Signs
Temp Pulse Resp BP Pulse Ox
97.6 F 77 18 108/68 97
11/21/23 08:04 11/21/23 08:04 11/21/23 08:04 11/21/23 08:04 11/21/23 08:04
I&O
11/20/23 11/21/23 11/22/23
06:59 06:59 06:59
Intake Total 0 / 0
Balance 0 / 0
Review of Systems
-
History Source: Patient
Constitutional: Reports No Symptoms
Respiratory: Reports No Symptoms
Cardiac: Reports No Symptoms
Abdomen/GI: Reports No Symptoms
Genitourinary: Reports No Symptoms
Musculoskeletal: Reports No Symptoms
Skin: Reports No Symptoms
Neuro: Reports No Symptoms
Physical Exam
-
General: Well Nourished, No Apparent Distress and Comfortable
HEENT: Normocephalic, Atraumatic and Moist Mucous Membranes
Respiratory: Clear to Auscultation and Non Labored Respirations; Negative Wheezes or Rales
Cardiac: Regular Rhythm and S1/S2
GI: Soft, Nontender, Nondistended and Other (Slightly reduced bowel sounds)
Musculoskeletal: No Clubbing, No Cyanosis, No Edema and Other (Tenderness to RLQ palpation, near site of fullness, no peritoneal signs)
Skin: Warm and Dry; Negative Rash or Jaundice
Neuro: AO x 3, Nonfocal/Grossly Intact and Central Nerve's Intact
Hematologic / Lymphatic: No Lymphadenopathy
Data Reviewed
-
Labs: Labs Reviewed by me
--- NOTE | 2023-11-21 11:08 | CON.ID ---
Consultation
-
Date/Time Consultation Requested: November 20, 20233
Date/Time Consultation Performed: November 21, 2023 1110
Requesting Provider: Dr. Qasim Howard
Performing Provider: Dr. Dottie Chou
Reason for Consultation: Rectus sheath hematoma vs abscess
Chief Complaint / Past History
Chief Complaint
Right lower abdominal pain
History of Present Illness
88-year-old male with history of diabetes mellitus, atrial fibrillation on Eliquis who presented to the ER November 19 with persistent right lower abdominal pain. He states the pain started in early October and described as a dull ache, intermittent. He
presented to the ER on October 22, CAT scan of the abdomen pelvis with IV contrast no acute change. He was complaining of gross hematuria at that time in ER treated him for presumed UTI with Augmentin x 2 weeks. Patient continued to have worsening
right abdominal pain. No fevers or chills. No diarrhea. He thought maybe it was appendicitis and therefore presented back to the hospital November 19. He is afebrile. Normal white count. CAT scan of the abdomen and pelvis with IV contrast now
shows a 5 x 9 x 4.5 cm had a real genius density in the right anterior abdominal wall most likely rectus sheath hematoma, possibly abscess. Patient was started on Zosyn. Interventional radiology has been consulted for drainage. Patient has been
having poor appetite for the past few months. He denies any trauma or injury to the abdomen. He had been falling frequently in the past. Last fall was 3 months ago. He lives in a long-term now. No urinary symptoms. No flank pain.
Past History
Additional Past Medical History:
DM
Afib on Eliquis
HF EF 40-45%
HLD
Chronic bilateral pleural effusions
BPH
gout
Colon ca s/p resection
Cholecystectomy
Bilateral FRANSISCO
Left TKA
Allergy History:
oyster extract Allergy (Verified 11/20/23 13:42)
OYSTER-UNKNOWN REACTION
shellfish derived Allergy (Verified 11/20/23 13:42)
OYSTER-UNKNOWN REACTION
Medications Reviewed: Yes
Current Antibiotics:
Zosyn
Social History
Tobacco: Non-Smoker
Alcohol: Occasional
Drug: None
Living: [facility]
Family History
Family History: Not Pertinent
Review of Systems
Review of Systems
General: Change in Appetite; Negative Fever or Chills
HEENT: Negative Sinus Problems, Headache or Pharyngitis
Cardiovascular: Negative Chest Pain or Dyspnea
Respiratory: Negative Dyspnea or Cough
Gasteroenterology: Other (no diarrhea); Negative Nausea or Vomiting
Genital / Urological: Negative Dysuria or Flank Pain
Endocrine: Weakness
Skin / Hair / Nails: Negative Rash
Neurological: Negative Headache or Dizziness
All systems: All other systems were reviewed and were negative
Vital Signs
Temp Pulse Resp BP Pulse Ox
97.6 F 77 18 108/68 97
11/21/23 08:04 11/21/23 08:04 11/21/23 08:04 11/21/23 08:04 11/21/23 08:04
Physical Exam
Physical Exam
Constitutional: No Acute Distress
Eyes: No Conjunctival Hemorrhage and Sclera Anicteric
Cardiovascular: Regular Rate and S1/S2
Pulmonary: Clear
Gastrointestinal: Soft, Tender (Right lower quadrant with induration/tenderness, no erythema) and Non Distended
Genito-Urinary: Negative CVA Tenderness
Extremities: Negative Edema
Neurological: AO x 3
Lab / Diagnostic Study Results
11/21/23 07:44
11/21/23 07:44
Abs Immat Gran (auto) 0.0 10^3/uL (0-0.05) 11/20/23 13:46
Absolute Neuts (auto) 7.2 10^3/uL (1.4-6.5) H 11/20/23 13:46
Absolute Lymphs (auto) 0.6 10^3/uL (1.2-3.4) L 11/20/23 13:46
Absolute Monos (auto) 0.7 10^3/uL (0.1-0.6) H 11/20/23 13:46
Absolute Basos (auto) 0.0 10^3/uL (0-0.2) 11/20/23 13:46
Immature Gran % 0.5 % (0-0.5) 11/20/23 13:46
Neutrophils % 83.5 % (42.2-75.2) H 11/20/23 13:46
Lymphocytes % 6.9 % (20.5-51.1) L 11/20/23 13:46
Monocytes % 8.0 % (1.7-9.3) 11/20/23 13:46
Eosinophils % 0.9 % (0-6) 11/20/23 13:46
Basophils % 0.2 % (0-2) 11/20/23 13:46
PT 19.0 Sec (11.4-14.6) H 11/21/23 07:44
INR 1.61 11/21/23 07:44
Microbiology Results
Micro:
11/21/23 10:00 MRSA Screen - Pending
Nose
11/20/23 15:27 Urine Culture - Pending
Urine
11/20/23 CT a/p IV contrast: Area of heterogeneous density in the right lower quadrant most likely with epicenter in the right anterior abdominal wall, low-attenuation centrally and soft tissue density peripherally measuring approximately 5 x 9 x 4.5
cm. Most likely differential diagnostic possibility would be a rectus sheath hematoma, possibly with superinfection or abscess proper. Rectus sheath mass would be unlikely but cannot be entirely excluded.
Assessment / Plan
# Right anterior abdominal wall/rectus sheath densitiy 5x9x4.5cm.
- Suspect hematoma (on Eliquis), less likely abscess (unusual site for abscess).
- Agree with IR aspiration/drainage for culture and pathology.
- Afebrile, normal wbc.
DC Zosyn to increase cx yield.
# Conditions MARKET RESEARCH MANAGER
DM
Afib on Eliquis
HF EF 40-45%
HLD
Chronic bilateral pleural effusions
BPH
gout
Colon ca s/p resection
Cholecystectomy
Bilateral FRANSISCO
Left TKA
[2023-11-21 11:54] LABS: Glucose - Point of Care 173 mg/dl (70-99)
[2023-11-21] MEDS: NOVOLOG FLEXPEN-LOW RESISTANCE 1 UNITS SC ×2 (12:03→17:21)
--- NOTE | 2023-11-21 12:43 | CM ---
Addendum entered by Vivi Lo 11/21/23 12:47:
Attempted bedside meeting with pt- off unit
VM left for son/POA introducing self and explaining role
Original Note:
[facility]
Pt is a U resident
He is independent with ambulation and transfers with use of a WW
He is stand-by assist for personal care
He is incontinent of B/B and utilizing depends for managements
Pt AxO 3x
PCP- Patrick Graves
Rx- [facility]
Preferred providers are [facility]
Per nursing, they can accept a higher level of acuity
Requesting pt to be reviewed closer to determine if needs can be met at facility
Pt will need PT/OT orders on medically appropriate
Plan for IR drainage of abscess, ID following
Discharge Disposition- return to [facility], watch for higher level of care needs
--- NOTE | 2023-11-21 13:44 | IR.POSTOP ---
IRAD Post Procedure Note
-
Description of Findings:
US evaluation of the RLQ demonstrated a multilobulated hypoechoic structure consistent with the right rectus sheath lesion seen on CT. No simple fluid was present, however there was fairly complex internal contents that likely represented blood
products. US guided aspiration yielded minimal blood but no significant fluid to send for cultures. Overall constellation of findings is consistent with a subacute hematoma.
--- NOTE | 2023-11-21 14:00 | PTCARENOTE ---
Patient returned from IR with gauze and tegarderm to [facility]. IR Nurse reports aspiration attempt was unsuccessful.
--- NOTE | 2023-11-21 14:41 | PTCARENOTE ---
Patient with no void this shift. Bladder scan for 90ml.
--- NOTE | 2023-11-21 15:10 | WOUNDNOTE ---
WON RN note: Patient admitted with abscess of rectus sheath.
See H&P for complete history. Lives at [facility].
PMH: NIDDM,A FIB, HTN,PM, COLON CA, mass removed from anus, ileostomy reversal, knee and hip replacements.
Wound Location and type/assessment: Patient admitted with: Stage 3 PI on sacrum. Patient states he has had wound for several weeks, started because he was incontinent of loose stool and unable to change brief. Patient reports painful to touch.
Heels are intact and patient able to turn to side with minimal assist.
Appetite: NPO for IR drainage of abscess.
Pressure redistribution devices in place: On [facility] bed, asked nurse Ramandeep to apply air overlay to bed when able. Air chair cushion brought into rm. Patient turned to L side lying position. Encourage turning schedule.
Plan: Sacrum: skin prep periwound, honey gel, adaptic and dry dressing daily and prn drainage. Foam dressing changed today, called [facility] for honey gel. Can take air chair cushion upon discharge.
Will confirm orders with hospitalist and updated nurse Sabillon.
Updated care plan and will follow as needed.
Note to case management of equipment requested for discharge: VN if doesn't already have at .
Recommend follow up at wound care center upon discharge.
[2023-11-21 17:19] LABS: Glucose - Point of Care 176 mg/dl (70-99)
[2023-11-21] MEDS: FEOSOL PO (20:15)
[2023-11-21 21:09] LABS: Glucose - Point of Care 182 mg/dl (70-99)
[2023-11-21] MEDS: FLOMAX 0.4 MG PO (21:51)
[2023-11-21] MEDS: LIPITOR 40 MG PO (21:51)
[2023-11-21] MEDS: CYMBALTA DELAYED RELEASE 20 MG PO (21:51)
[2023-11-22 03:34] VITALS: BP 107/60
[2023-11-22 06:00] VITALS: BMI 23.6
--- NOTE | 2023-11-22 06:11 | PTCARENOTE ---
Pt aaox2-3, forgetful at time. Pt refuses [id number],doesn't like to be woken up to provide nursing care.Refuses pillow or chair cushion to reposition.Pt was provided with emotional & psychological support as needed,plan of care was provided to pt.Call
yarbrough in reach & bed alarm in place.
[2023-11-22 06:59] LABS: % Basophils 0.2 % (0-2); % Eosinophils 1.9 % (0-6); % Immature Granulocytes 0.7 % (0-0.5); % Lymphocytes 9.3 % (20.5-51.1); % Monocytes 8.5 % (1.7-9.3); % Neutrophils 79.4 % (42.2-75.2); Absolute Eosinophils 0.2 10^3/uL (0-0.7); Absolute Immature Granulocytes 0.1 10^3/uL (0-0.05); Absolute Lymphocytes 0.8 10^3/uL (1.2-3.4); Absolute Monocytes 0.7 10^3/uL (0.1-0.6); Absolute Neutrophils 6.6 10^3/uL (1.4-6.5); Hematocrit 29.6 % (39.0-52.0); Hemoglobin 10.2 g/dL (13.0-18.0); Mean Corp Hgb Conc. 34.5 g/dL (33.0-37.0); Mean Corpuscular Hgb 30.4 pg (27.0-31.0); Mean Corpuscular Volume 88.4 fL (80.0-94.0); Mean Platelet Volume 9.6 fL (7.4-10.4); Nucleated Red Blood Cells % 0 % (-); Platelet Count 265 10^3/uL (130-400); Red Blood Cell Count 3.35 10^6/uL (4.70-6.10); Red Cell Dist. Width 14.7 % (11.5-14.5); White Blood Cell Count 8.4 10^3/uL (4.8-10.8)
[2023-11-22 07:22] LABS: Blood Urea Nitrogen 22 mg/dl (9-20); Calcium 8.9 mg/dl (8.4-10.2); Carbon Dioxide 25 mmol/L (22-30); Chloride 102 mmol/L (98-107); Estimated Creatinine Clearance 55 ml/min; Glucose 135 mg/dl (70-99); Potassium 3.3 mmol/L (3.5-5.1); Sodium 136 mmol/L (135-145); eGFR > 60.00
[2023-11-22 07:47] VITALS: BP 113/74
--- NOTE | 2023-11-22 09:00 | PN.CDI ---
CDI
- -
CDI:
Physician Documentation Request
Admit Date: 11/20/23 20:28
Dear Doctor Homar,
Please review the following and provide your response in the progress notes.
Clinical Indicators:
Pt admitted with rectus sheath abscess versus hematoma.
cloth piecer assessment noted stage 3 sacral pressure injury POA.
11/20 WON RN: 'Wound Location and type/assessment: Patient admitted with: Stage 3 PI on sacrum.'
Physician documentation of the type and location of wounds is required for compliant documentation. Based on the above clinical findings and your assessment, please provide the following in your progress note:
Stage 3 sacral pressure injury POA
Non-pressure ulcer
Other
Use of terms such as suspected, likely, concern for, or probable (associated with a specific diagnosis that is being evaluated, monitored, or treated as if it exists) are acceptable and can be coded in the inpatient setting, when documented at the
time of discharge.
Thank you,
Paula Chu RN, BSN
CDI Specialist
Available via tiger text
Please use your independent medical judgment in providing your response.
*Source: National Pressure Ulcer Advisory Panel (NPUAP)
[2023-11-22] MEDS: ZYLOPRIM 100 MG PO (09:04)
[2023-11-22] MEDS: TOPROL XL 12.5 MG PO (09:04)
[2023-11-22] MEDS: FEOSOL 325 MG PO (09:05)
[2023-11-22] MEDS: KCL 40 MEQ PO (09:05)
[2023-11-22] MEDS: PACERONE 200 MG PO (09:05)
[2023-11-22] MEDS: NOVOLOG FLEXPEN-LOW RESISTANCE 1 UNITS SC ×2 (09:05→16:46)
[2023-11-22 09:07] LABS: Glucose - Point of Care 155 mg/dl (70-99)
[2023-11-22] MEDS: SENOKOT-S 1 TABLET PO (09:11)
[2023-11-22] MEDS: MIRALAX 17 GRAMS PO (09:11)
[2023-11-22 10:59] VITALS: BMI 23.6
--- NOTE | 2023-11-22 11:02 | W.PN.HOSP.TC ---
Today's Communication/Plan
-
Plan for discharge
Hold Eliquis for 2 weeks, or if directed to start earlier by PCP
Assessment / Plan
Assessment / Plan
# Subacute rectus sheath hematoma
-Patient states he has had falls fairly recently, may be contributing as site of trauma
-No signs of ongoing bleeding, hemoglobin stable per CBC this morning
-S/p IR drainage without any signs of infection, IV antibiotics were DC'd
-Eliquis still held, should be restarted in 2 weeks from today
-Still has some pain with palpation, though improving
#H/O Paroxysmal AF on Eliquis
#H/O VT S/P AICD
-Status post electrical cardioversion resulting in bradycardia ( Dec 2022) needed dopamine gtt for bradycardia
-Home regimen includes reduced dose Eliquis for AC, low-dose metoprolol and amiodarone for rate/rhythm control
-Eliquis currently on hold for planned IR aspiration
-Hemodynamically stable, heart rate WNL and appears NSR this
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
-GDMT includes low-dose beta-andrés; no MARLY/ARB, MRA, SGLT2 at this
-Is not currently on any standing diuretic regimen; seems well compensated
-Appears euvolemic today, no indication for diuretics, will monitor I's and O's and weights
#Persistently abnormal UA
#Recent UTI with mixed fritz growth, s/p Augmentin for 2 weeks
-No symptoms at this time, suspect that this is colonization
-Remains on Zosyn for above issues, provides good urine coverage as well
#Insulin-dependent type 2 diabetes mellitus
-No recent A1c, no known micro or macrovascular complications
-Home medications include Farxiga, Tradjenta, short acting insulin
-Oral agents stopped on admission, started on ISS with as needed basal bolus
-Glucose at goal today
# Hypokalemia -- likely nutritional, reduced intake from pain
-Potassium 3.3 today, ordered 40 mEq KCl x 2 for today
-Continue to monitor BMP while here
#Stage III sacral ulcer POA
-No signs of infection at this time, wound care following
DVT Pphx: SCD
CODE STATUS: DNR
Diet: Regular
Anticipated Discharge: Today
Subjective/Interval History
-
Date of Service: November 22, 2023
Seen and examined at bedside today. No acute events. Denies any complaints, states he feels well. Pain to the RLQ is improving. Still present with palpation
Objective Data
-
Labs:
Laboratory Results
11/22/23 11/22/23
06:38 06:39
WBC 8.4
Hgb 10.2 L
Hct 29.6 L
Plt Count 265
Sodium 136
Potassium 3.3 L
Chloride 102
Carbon Dioxide 25
BUN 22 H
Creatinine 1.0
Glucose 135 H
Calcium 8.9
Vital Signs:
Vital Signs
Temp Pulse Resp BP Pulse Ox
97.8 F 87 18 113/74 97
11/22/23 07:47 11/22/23 07:47 11/22/23 07:47 11/22/23 07:47 11/22/23 07:47
I&O
11/21/23 11/22/23 11/23/23
06:59 06:59 06:59
Intake Total 0 / 0 240 / 240
Balance 0 / 0 240 / 240
Review of Systems
-
History Source: Patient
Constitutional: Reports No Symptoms
Respiratory: Reports No Symptoms
Cardiac: Reports No Symptoms
Abdomen/GI: Reports No Symptoms
Genitourinary: Reports No Symptoms
Skin: Reports No Symptoms
Neuro: Reports No Symptoms
Hematologic / Lymphatic: Reports No Symptoms
Physical Exam
-
General: Well Nourished, No Apparent Distress and Comfortable
HEENT: Normocephalic, Atraumatic and Moist Mucous Membranes
Respiratory: Clear to Auscultation and Non Labored Respirations
Cardiac: Regular Rhythm and S1/S2; Negative Murmur, Rub or Gallop
GI: Soft, Nontender, Nondistended and Normal Bowel Sounds
Musculoskeletal: No Clubbing, No Cyanosis, No Edema and Other (RLQ soft tissue mass with tenderness to palpation (representing site of hematoma))
Skin: Warm, Dry and Decubitus Ulcers (Chronic, POA); Negative Rash or Jaundice
Neuro: AO x 3, Nonfocal/Grossly Intact and Central Nerve's Intact
Data Reviewed
-
Labs: Labs Reviewed by me
[2023-11-22 11:44] VITALS: BP 97/66
[2023-11-22 11:59] LABS: Glucose - Point of Care 212 mg/dl (70-99)
[2023-11-22] MEDS: NOVOLOG FLEXPEN-LOW RESISTANCE 2 UNITS SC (12:48)
--- NOTE | 2023-11-22 15:13 | W.DCSUMMARY ---
Discharge Summary
Discharge Data
Date of Admission: 11/20/23
Date of Discharge: 11/22/23
-
Pending Results: No
Hospital Course
Presented with abdominal pain and tenderness with mass like object in area of RLQ. Prelim imaging with CT suspected abscess vs hematoma. IR consulted for aspiration, which yielded findings consistent with sub-acute hematoma within rectus sheath.
Eliquis held and CBC with stable Hgb. No fevers or other symptoms concerning for infection. Received short course of IV zosyn in hospital.
Following DC, should hold eliquis until 12/06/2023. Should follow up with PCP within 1 week of DC. If deemed appropriate by PCP, Eliquis can be resumed sooner than 12/05
Discharge Plan
-
Patient Disposition: Assisted Living
Discharge Diagnosis/Procedures: Rectus sheath hematoma�subacute
Condition: Good
Diet: No restrictions
Activity: As tolerated
Driving Restrictions: No driving
Other Services: VN, PT and OT
Activity Restrictions/Additional Instructions:
Wound Care Instructions
Sacrum: clean with soap and water( can shower), skin prep periwound, honey gel, adaptic and dry dressing daily and prn drainage.
Air chair cushion when sitting, can take upon discharge
increase protein in diet to help with wound healing
Frequent turning when in bed
Follow up at wound care center call for an appointment.
Referrals:
Patrick Graves DO [Family Provider] -
Additional Discharge Medication Instructions: Hold Eliquis for 2 weeks (resume on 12/06/2023), unless resumed by primary care provider before then
Prescriptions:
Continued
tamsulosin 0.4 MG capsule
0.4 mg PO HS
atorvastatin [Lipitor] 40 mg Tablet
40 mg PO HS
acetaminophen [Tylenol] 325 mg Tablet
650 mg PO Q6HPRN MDD 3000 mg PRN (Reason: mild pain)
loperamide 2 mg Capsule
2 mg PO HS
magnesium hydroxide [Milk of Magnesia] 400 mg/5 mL Suspension
30 ml PO [id number] PRN (Reason: no bm on 3rd day)
duloxetine 20 mg Capsule,Delayed Release(Dr/Ec)
20 mg PO HS
ketoconazole 2 % Shampoo
1 applic TOPICAL .2-3 TIMES A WEEK
cyanocobalamin (vitamin B-12) 1,000 mcg Tablet
1,000 mcg PO DAILY
allopurinol 100 mg Tablet
100 mg PO DAILY
ferrous sulfate 325 mg (65 mg iron) Tablet
325 mg PO BID
alum-mag hydroxide-simeth [Mag-Al Plus] 200-200-20 mg/5 mL Suspension
30 ml PO Q4HPRN PRN (Reason: indigestion)
insulin lispro 100 unit/mL Insulin Pen
0 sliding scale dose SC AC
Rx Instructions:
200-249=2units, 250-299=4units, 300-349=6units, 350-400=8units
cholecalciferol (vitamin D3) [Vitamin D3] 25 mcg (1,000 unit) Tablet
25 mcg PO DAILY
PreserVision AREDS-2 250-90-40-1 mg Capsule
1 tab PO DAILY
amiodarone [Pacerone] 200 mg tablet
200 mg PO DAILY
metoprolol succinate 25 mg tablet extended release 24 hr
12.5 mg PO DAILY
loperamide 2 mg Capsule
2 mg PO DAILYPRN PRN (Reason: diarrhea)
Rx Instructions:
take 2 caps after first loose stool, then 1 cap after each loose stool
Held
Eliquis 2.5 mg tablet
2.5 mg PO BID
Hold Instructions: Resume on 12/06/23. For rectus sheath hematoma
Discontinued
ketoconazole 2 % Cream
1 applic TOPICAL DAILY
vitamin E 268 mg (400 unit) Capsule
180 mg PO DAILY
Discharge Orders:
Discharge Patient (As Directed); Ordered 11/22/23
Ordered By: Terrence Graf
Discharge Date and Time
Print Language: INDONESIAN
--- NOTE | 2023-11-22 15:16 | CM ---
Addendum entered by Breana Licona 11/22/23 17:33:
Cm spoke with Carlos's son who just returned from traveling and Carlos's daughter who is not local. They are going to call to pay for the w/c van transport.
Original Note:
Call to [facility] to advise of plan for discharge today. Per nursing, they can accept a higher level of acuity and agree to discharge.
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
Referral sent for [facility] due to pt's refusal to work with therapy here.
VM left for Carlos's son (Fabian) to make him aware of discharge this afternoon. Return call requested to discuss w/c van transport vs. family transport.
Plan: [facility] services.
Report: [phone]

PCP- Patrick Graves
Marlena- Jose D Marinelli
[2023-11-22 15:25] VITALS: BP 113/74
--- NOTE | 2023-11-22 15:31 | W.PN.ID1 ---
Date of Service
Date of Service: November 22, 2023
Today's Communication
No need for abx.
ID will sign off.
Assessment / Plan
# Right anterior abdominal wall/rectus sheath density 5x9x4.5cm.
- hematoma (on Eliquis)
- IR aspiration of scant blood, not enough for cx.
- Afebrile, normal wbc.
- Observe off abx.
# Candiduria
- No need to treat yeast in urine.
ID will sign off.
# Conditions KITCHEN WORKER
DM
Afib on Eliquis
HF EF 40-45%
HLD
Chronic bilateral pleural effusions
BPH
gout
Colon ca s/p resection
Cholecystectomy
Bilateral FRANSISCO
Left TKA
Chief Complaint
-: Other (Hematoma)
Subjective / Review of Systems
No new complaints.
Vital Signs / Physical Exam
Vital Signs
Vital Signs
Temp Pulse Resp BP Pulse Ox
97.5 F 80 18 113/74 96
11/22/23 15:25 11/22/23 15:25 11/22/23 15:25 11/22/23 15:25 11/22/23 15:25
Physical Exam
Constitutional: No Acute Distress
Gastrointestinal: Soft, Tender (right lower abdomen with induration, tender, no erythema) and Non Distended
Objective Data
Lab Data
Lab Results
11/22/23 06:38
11/22/23 06:39
PT 19.0 Sec (11.4-14.6) H 11/21/23 07:44
INR 1.61 11/21/23 07:44
Estimated Creat Clear 55 ml/min 11/22/23 06:39
Total Bilirubin Cancelled 08/05/24 13:46
AST Cancelled 11/20/23 13:46
ALT Cancelled 11/20/23 13:46
Alkaline Phosphatase Cancelled 11/20/23 13:46
Most recent labs reviewed.
Micro Results:
11/21/23 10:00 MRSA Screen - Final
Nose No Methicillin Resistant Staphylococcus aureus isolated.
11/20/23 15:27 Urine Culture - Final
Urine Yeast
11/20/23 CT a/p IV contrast: Area of heterogeneous density in the right lower quadrant most likely with epicenter in the right anterior abdominal wall, low-attenuation centrally and soft tissue density peripherally measuring approximately 5 x 9 x 4.5
cm. Most likely differential diagnostic possibility would be a rectus sheath hematoma, possibly with superinfection or abscess proper. Rectus sheath mass would be unlikely but cannot be entirely excluded.
[2023-11-22 16:33] LABS: Glucose - Point of Care 162 mg/dl (70-99)
--- NOTE | 2023-11-24 09:41 | CM ---
GALDINO Kilpatrick requested referral be placed, [facility].
Referral sent via [facility].
== END 2023-11-22 18:03 | disposition home or self-care (01) | DRG 579 ==
LOC: 4 EAST ACU 20:28
PROVIDERS: Physician Assistant; Radiology Diagnostic Radiology; ADMITTING PHYSICIAN Internal Medicine; ATTENDING PHYSICIAN Internal Medicine; CONSULT PHYSICIAN Internal Medicine Infectious Disease; EMERGENCY PHYSICIAN Student in an Organized Health Care Education/Training Program; FAMILY PHYSICIAN Internal Medicine
PROC: 0W9F3ZX Drainage of Abdominal Wall, Percutaneous Approach, Diagnostic (ICD-10-PCS; 2023-11-21)
DX: S30.1XXA Contusion of abdominal wall, initial encounter (principal); L89.153 Pressure ulcer of sacral region, stage 3; I42.0 Dilated cardiomyopathy; I50.22 Chronic systolic (congestive) heart failure; I13.0 Hypertensive heart and chronic kidney disease with heart failure and stage 1 through stage 4 chronic kidney disease, or unspecified chronic kidney disease; J91.8 Pleural effusion in other conditions classified elsewhere; B37.49 Other urogenital candidiasis; E11.22 Type 2 diabetes mellitus with diabetic chronic kidney disease; N18.32 Chronic kidney disease, stage 3b; Z66 Do not resuscitate; E78.00 Pure hypercholesterolemia, unspecified; M10.9 Gout, unspecified; N40.0 Benign prostatic hyperplasia without lower urinary tract symptoms; I48.0 Paroxysmal atrial fibrillation; R63.0 Anorexia; R29.6 Repeated falls; Z91.81 History of falling; X58.XXXA Exposure to other specified factors, initial encounter; Z68.24 Body mass index [BMI] 24.0-24.9, adult; Z79.4 Long term (current) use of insulin; Z79.84 Long term (current) use of oral hypoglycemic drugs; Z79.01 Long term (current) use of anticoagulants; Z87.440 Personal history of urinary (tract) infections; Z85.038 Personal history of other malignant neoplasm of large intestine; Z90.49 Acquired absence of other specified parts of digestive tract; Z95.810 Presence of automatic (implantable) cardiac defibrillator; Z96.643 Presence of artificial hip joint, bilateral; Z96.652 Presence of left artificial knee joint
CPT/HCPCS: 10160; 74177; 76942; 80048; 81003; 81015; 82962; 83036; 83690; 85025; 85027; 85610; 87070; 87086; 96365; 99285; Q9967

== ENCOUNTER 2023-12-04 16:22 | Emergency (ER) | payer MEDICARE, BC, SELFPAY ==
[2023-12-04 16:24] VITALS: BP 106/76; BMI 24.3
[2023-12-04 16:33] VITALS: BP 103/76
[2023-12-04 16:40] LABS: % Basophils 0.2 % (0-2); % Eosinophils 0.9 % (0-6); % Immature Granulocytes 0.6 % (0-0.5); % Lymphocytes 8.3 % (20.5-51.1); % Monocytes 7.6 % (1.7-9.3); % Neutrophils 82.4 % (42.2-75.2); Absolute Eosinophils 0.1 10^3/uL (0-0.7); Absolute Immature Granulocytes 0.1 10^3/uL (0-0.05); Absolute Lymphocytes 0.8 10^3/uL (1.2-3.4); Absolute Monocytes 0.7 10^3/uL (0.1-0.6); Absolute Neutrophils 7.5 10^3/uL (1.4-6.5); Hematocrit 33.1 % (39.0-52.0); Hemoglobin 11.2 g/dL (13.0-18.0); Mean Corp Hgb Conc. 33.8 g/dL (33.0-37.0); Mean Corpuscular Volume 88.7 fL (80.0-94.0); Mean Platelet Volume 9.3 fL (7.4-10.4); Nucleated Red Blood Cells % 0 % (-); Platelet Count 278 10^3/uL (130-400); Red Blood Cell Count 3.73 10^6/uL (4.70-6.10); Red Cell Dist. Width 15.3 % (11.5-14.5); White Blood Cell Count 9.1 10^3/uL (4.8-10.8)
[2023-12-04 17:00] VITALS: BP 105/85
[2023-12-04 17:17] LABS: ALT (SGPT) 17 U/L (0-50); AST (SGOT) 29 U/L (17-59); Albumin 3.2 g/dl (3.5-5.0); Alkaline Phosphatase 192 U/L (38-126); Blood Urea Nitrogen 27 mg/dl (9-20); Calcium 9.3 mg/dl (8.4-10.2); Carbon Dioxide 27 mmol/L (22-30); Chloride 95 mmol/L (98-107); Estimated Creatinine Clearance 50 ml/min; Glucose 168 mg/dl (70-99); Potassium 4.4 mmol/L (3.5-5.1); Sodium 130 mmol/L (135-145); Total Bilirubin 1.8 mg/dl (0.2-1.3); Total Protein 6.9 g/dl (6.3-8.2); eGFR > 60.00
[2023-12-04 18:00] VITALS: BP 102/70
[2023-12-04 19:01] VITALS: BP 101/67
--- NOTE | 2023-12-04 19:16 | ED.GENMED ---
History of Present Illness
General
Chief Complaint: Abdominal Pain
Source: patient, ambulance crew and snf
Time Seen by Provider: 12/04/23 16:26
History of Present Illness
History of Present Illness:
88-year-old male with a history of right abdominal wall hematoma who presents with pain at the site of the hematoma. Staff at the nursing of also report that his pulse ox dropped to 80% and was ranging between 80 and 94. However they do admit he
was not tachypneic and did not seem short of breath. He also did not complain of being short of breath. Patient offers no complaints of my exam.
Past History
Past History
ED Past Medical History: Arrthythmia (Atrial fibrillation), Cancer (Colon cancer), Hypercholesterolemia, NIDDM and Other (Abdominal wall hematoma)
ED Past Surgical History: Bowel resection and Orthopedic (Bilateral hip replacements, knee replacement, ankle surgery)
Social History
Tobacco: Non-smoker
Alcohol: Occasional
Drug: None
Personal:
Living: snf
Employment: Retired
Phy Exam
Physical Exam
Physical Exam:
CONSTITUTIONAL Patient alert and oriented to person, place. Well-appearing. Vital signs reviewed.
HEAD atraumatic, normocephalic.
EYES eyelids normal to inspection, Pupils equally round and reactive to light, Extraocular muscles intact, Conjunctiva normal, Sclera normal.
NECK normal range of motion, Trachea midline, no jugular venous distention.
RESPIRATORY CHEST No respiratory distress noted, Chest expansion equal
ABDOMEN No distention. Noted fluid collection that is fluctuant to the right lower abdomen. There is no surrounding cellulitis or redness. There is moderate tenderness
BACK normal inspection, no obvious deformities
UPPER EXTREMITY range of motion normal, Motor strength normal, no cyanosis, no edema.
LOWER EXTREMITY range of motion normal, Motor strength normal, no cyanosis, no edema.
NEURO Speech normal, No focal motor deficits Cranial Nerves intact to screening exam.
SKIN skin warm, dry, and normal in color.
Course
Orders/Labs/Results
Orders:
Orders
12/04/23 16:32
Complete Blood Count/With Diff Urgent
Comprehensive Metabolic Panel Urgent
12/04/23 19:12
0.9% Sodium Chloride 500 ml [Nss] 500 ml IV BOLUS
Abnormal Lab Results
12/04/23
16:32
RBC 3.73 L 10^6/uL
(4.70-6.10)
Hgb 11.2 L g/dL
(13.0-18.0)
Hct 33.1 L %
(39.0-52.0)
RDW 15.3 H %
(11.5-14.5)
Abs Immat Gran (auto) 0.1 H 10^3/uL
(0-0.05)
Absolute Neuts (auto) 7.5 H 10^3/uL
(1.4-6.5)
Absolute Lymphs (auto) 0.8 L 10^3/uL
(1.2-3.4)
Absolute Monos (auto) 0.7 H 10^3/uL
(0.1-0.6)
Immature Gran % 0.6 H %
(0-0.5)
Neutrophils % 82.4 H %
(42.2-75.2)
Lymphocytes % 8.3 L %
(20.5-51.1)
Sodium 130 L mmol/L
(135-145)
Chloride 95 L mmol/L
(98-107)
BUN 27 H mg/dl
(9-20)
Glucose 168 H mg/dl
(70-99)
Total Bilirubin 1.8 H mg/dl
(0.2-1.3)
Alkaline Phosphatase 192 H U/L
(38-126)
Albumin 3.2 L g/dl
(3.5-5.0)
12/04/23 16:32
12/04/23 16:32
Vital Signs
Initial and Last Documented VS:
Initial Vital Signs
Temp Pulse Resp BP Pulse Ox
97.8 F 84 18 106/76 95
12/04/23 16:24 12/04/23 16:24 12/04/23 16:24 12/04/23 16:24 12/04/23 16:24
Last Documented Vital Signs
Temp Pulse Resp BP Pulse Ox
97.8 F 84 18 105/85 94
12/04/23 16:24 12/04/23 16:24 12/04/23 16:24 12/04/23 17:00 12/04/23 17:30
MDM/Problems Addressed
MDM/Problems Addressed:
Abdominal hematoma
*Pulse Oximetry
Patient hypoxic: no
*Critical Care Note
Total Time (30-74mins, 75-104mins- exclusive of procedures): Not Applicable
Data Reviewed
Review of Other/Old Records Reveals: Radiology Studies (IR evaluation reviewed, aspirated and suspected to be hematoma) and Discharge Summary
Source: snf
Further Testing Considered But Not Given:
Consider CT but hematoma appears to be at the same size upon discharge
Patient Management
Escalation/DeEscalation of care consider admission/obs:
Blood pressure normal. Pulse ox normal. Patient resting comfortably and only has tenderness when palpated. Will refer to outpatient surgical follow-up. Anticoagulation has been held
ED Attending Note
-
Portions of this chart may have been created with voice recognition software.� Occasional wrong word or��sound alike� substitutions may have occurred due to the inherent limitations of voice recognition software.
Discharge Plan
Departure
Patient Disposition: Home (Routine Discharge)
Date of Disposition: 12/04/23
Time of Disposition: 19:19
Patient with high blood pressure during this ER visit?: No
Discharge Problem:
Abdominal wall hematoma
Instructions: Hematoma
Prescriptions:
No Action
tamsulosin 0.4 MG capsule
0.4 mg PO HS
atorvastatin [Lipitor] 40 mg Tablet
40 mg PO HS
acetaminophen [Tylenol] 325 mg Tablet
650 mg PO Q6HPRN MDD 3000 mg PRN (Reason: mild pain)
loperamide 2 mg Capsule
2 mg PO HS
magnesium hydroxide [Milk of Magnesia] 400 mg/5 mL Suspension
30 ml PO [id number] PRN (Reason: no bm on 3rd day)
duloxetine 20 mg Capsule,Delayed Release(Dr/Ec)
20 mg PO HS
ketoconazole 2 % Shampoo
1 applic TOPICAL MOTH
cyanocobalamin (vitamin B-12) 1,000 mcg Tablet
1,000 mcg PO DAILY
allopurinol 100 mg Tablet
100 mg PO DAILY
ferrous sulfate 325 mg (65 mg iron) Tablet
325 mg PO BID
alum-mag hydroxide-simeth [Mag-Al Plus] 200-200-20 mg/5 mL Suspension
30 ml PO Q4HPRN PRN (Reason: indigestion)
insulin lispro 100 unit/mL Insulin Pen
0 sliding scale dose SC AC
Rx Instructions:
200-249= 2 units; 250-299= 4 units; 300-349= 6 units; 350-400= 8 units
cholecalciferol (vitamin D3) [Vitamin D3] 25 mcg (1,000 unit) Tablet
25 mcg PO DAILY
PreserVision AREDS-2 250-90-40-1 mg Capsule
1 tab PO DAILY
amiodarone [Pacerone] 200 mg tablet
200 mg PO DAILY
metoprolol succinate 25 mg tablet extended release 24 hr
12.5 mg PO DAILY
Eliquis 2.5 mg tablet
2.5 mg PO BID
loperamide 2 mg Capsule
2 mg PO DAILYPRN PRN (Reason: diarrhea)
Rx Instructions:
take 2 caps after first loose stool, then 1 cap after each loose stool
ketoconazole 2 % Cream
1 applic TOPICAL DAILY
vitamin E 268 mg (400 unit) Capsule
268 mg PO DAILY
oxycodone 5 mg Tablet
5 mg PO Q6HPRN PRN (Reason: moderate pain)
Referrals:
Patrick Graves DO [Family Provider] -
Fabian Stovall MD [Active] -
Activity Restrictions/Additional Instructions:
Please see surgery in the next 1 week if symptoms persist. Please see your doctor in the next 48 hours for follow-up and reevaluation. Please return to immediately for change in mentation, expansion of your hematoma, fevers, weakness or any other
concerns.
Interventions
Interventions:
*Risk Screen - Suicide Last Done: 12/04/23 16:27
*General Assessment Last Done: 12/04/23 16:27
*Neglect/Abuse Screening Last Done: 12/04/23 16:27
*ED COVID-19 Vaccine History Last Done: 12/04/23 16:27
IA-Cdaglv-Nfyopfaluy Assessment Last Done: 12/04/23 16:40
Discharge Date and Time
Print Language: TAJIK
[2023-12-04] MEDS: NSS 500 IV (19:23)
[2023-12-04 20:00] VITALS: BP 104/75
== END 2023-12-04 20:14 | disposition home or self-care (01) ==
LOC: EMR 16:22
PROVIDERS: EMERGENCY PHYSICIAN Emergency Medicine; FAMILY PHYSICIAN Internal Medicine
DX: S30.1XXA Contusion of abdominal wall, initial encounter (principal); X58.XXXA Exposure to other specified factors, initial encounter; I48.91 Unspecified atrial fibrillation; E11.9 Type 2 diabetes mellitus without complications; E78.00 Pure hypercholesterolemia, unspecified; Z79.01 Long term (current) use of anticoagulants; Z85.038 Personal history of other malignant neoplasm of large intestine; Z96.643 Presence of artificial hip joint, bilateral; Z96.659 Presence of unspecified artificial knee joint; Z98.0 Intestinal bypass and anastomosis status; Z91.013 Allergy to seafood
CPT/HCPCS: 99284; 96360; 80053; 85025

== ENCOUNTER 2023-12-11 11:25 | Emergency (ER) | payer MEDICARE, BC, SELFPAY ==
[2023-12-11] VITALS (7 sets, daily range): BP systolic 96–114; BP diastolic 67–85; BMI 23.3
--- NOTE | 2023-12-11 11:51 | ED.GENMED ---
History of Present Illness
General
Chief Complaint: Cardiac Symptoms
Source: patient
Exam Limitations: dementia
Time Seen by Provider: 12/11/23 11:47
Nursing documentation reviewed up to this point in time: agreed with
History of Present Illness
History of Present Illness:
Is an 88-year-old male with history atrial fibrillation, diabetes, hypertension, hyperlipidemia presenting to the emergency department for evaluation from nursing facility. Per correction�patient was sent due to cardiology call stating that
patient's pacemaker was displaying atrial fibrillation and to be evaluated in the emergency department. Patient himself denies any current complaints. He denies any chest pain, shortness of breath, lightheadedness/dizziness, visual changes,
numbness/tingling, or weakness. Patient denies any hematuria, hematochezia. He does have some abdominal pain around his hematoma.
Patient does take Eliquis 2.5 mg twice a day. It was recently stopped briefly due to a rectus sheath hematoma although has since been restarted.
Past History
Past History
ED Past Medical History: Arrthythmia (Atrial fibrillation), Cancer (Colon cancer), Hypercholesterolemia, NIDDM and Other (Abdominal wall hematoma)
ED Past Surgical History: Bowel resection and Orthopedic (Bilateral hip replacements, knee replacement, ankle surgery)
Social History
Tobacco: Non-smoker
Alcohol: Occasional
Drug: None
Personal:
Living: correction
Employment: Retired
Review of Systems
Review of Systems
Allergies reviewed?: Yes
All Other Systems: ROS reviewed and negative except as documented in HPI and ROS
Phy Exam
Physical Exam
Physical Exam:
Vitals: Patient's vital signs are stable. Afebrile
General: Patient is well appearing, no acute distress
Skin: Warm and dry, no rashes or lesions
Head: Normocephalic, atraumatic
Eyes: Sclera nonicteric. EOMs intact. No nystagmus.
Throat: Protecting airway
Neck: Normal ROM, no cervical spine tenderness, no meningismus. No JVD
Cardiac: Regular rate and rhythm, no murmurs.
Pulm: In no respiratory distress. Chest expansion equal.
Abdomen: Abdomen soft. Fluctuant fluid collection noted in right lower abdomen without any overlying/surrounding cellulitis or erythema. There is moderate tenderness
Extremities: No evidence of cyanosis or edema. Great distal pulses
Neuro: Grossly intact
Psychiatric: Normal affect.
Course
Orders/Labs/Results
Orders:
Orders
12/11/23 12:06
Electrocardiogram (*1) Urgent
Reason for Study: Chest Pain
EKG- Treatment ONCE
Interrogate Pacemaker- Treatment ONCE
12/11/23 12:13
0.9% Sodium Chloride 500 ml [Nss] 500 ml IV BOLUS
12/11/23 12:22
Complete Blood Count/With Diff Urgent
Comprehensive Metabolic Panel Urgent
Troponin I Urgent
12/11/23 14:13
US Abdomen Limited Urgent
Reason For Exam: rectus sheath hematoma
Abnormal Lab Results
12/11/23
12:22
RBC 3.39 L 10^6/uL
(4.70-6.10)
Hgb 10.4 L g/dL
(13.0-18.0)
Hct 29.7 L %
(39.0-52.0)
RDW 15.7 H %
(11.5-14.5)
Abs Immat Gran (auto) 0.1 H 10^3/uL
(0-0.05)
Absolute Neuts (auto) 8.1 H 10^3/uL
(1.4-6.5)
Absolute Lymphs (auto) 0.4 L 10^3/uL
(1.2-3.4)
Immature Gran % 0.7 H %
(0-0.5)
Neutrophils % 88.0 H %
(42.2-75.2)
Lymphocytes % 4.5 L %
(20.5-51.1)
BUN 24 H mg/dl
(9-20)
Glucose 164 H mg/dl
(70-99)
Total Bilirubin 2.6 H mg/dl
(0.2-1.3)
Alkaline Phosphatase 272 H U/L
(38-126)
Troponin I 0.051 H* ng/ml
Albumin 2.9 L g/dl
(3.5-5.0)
12/11/23 12:22
12/11/23 12:22
Vital Signs
Initial and Last Documented VS:
Initial Vital Signs
Temp Pulse Resp BP Pulse Ox
97.6 F 89 16 103/69 98
12/11/23 11:28 12/11/23 11:28 12/11/23 11:28 12/11/23 11:28 12/11/23 11:28
Last Documented Vital Signs
Temp Pulse Resp BP Pulse Ox
97.6 F 83 25 114/70 95
12/11/23 11:28 12/11/23 17:00 12/11/23 17:00 12/11/23 17:00 12/11/23 12:09
MDM/Problems Addressed
Differential Diagnosis Includes:
Not limited to: Cardiac arrhythmia, anemia, dehydration, viral illness, electrolyte abnormalities
MDM/Problems Addressed:
88 year old male presenting from nursing facility with concern of cardiac arrhythmia detected on ICD. Patient asymptomatic with no current complaints. Patient has stable vital signs on arrival. Appears to be in a ventricular paced rhythm. ICD
interrogated which did show a few runs of vtach w/ atrial arrythmia. Discussed with cardiology who will f/u with patient outpatient. Given ICD - vtach not current concern. Patient currently anticoagulated on eliquis which he recently restarted due
to abdominal wall hematoma in right lower abdomen. Did obtain US of hematoma for size comparison which does appear slightly larger from prior. No overlying erythema or streaking to suggest infectious process. Labs noted. Hemoglobin stable. Trop
mildly elevated to 0.051 which appears to be patients baseline. Very low suspicion for ACS
Patient stable for discharge. Will advise holding eliquis due to expanding hematoma which cardiology agrees with. Patient will f/u with cardiology and general surgery for hematoma. Close return precautions discussed including fevers, significant
pain or change in size of hematoma, etc. Discussed with patient's nursing facility who are aware of changes. Case discussed with attending physician.
Chronic conditions affecting care:
Atrial fibrillation on Eliquis, hypertension, hyperlipidemia, diabetes
Acute Exacerbation and/or Progression of Chronic Illness:
N/A
*Radiology
Radiology exam reviewed: radiology read reviewed
*Pulse Oximetry
Patient hypoxic: no
*EKG
Interpreted by ED Provider?: Yes
EKG Intrepretation Date: 12/11/23
Interpretation: abnormal
Comparison EKG: changes noted
Heart Rate: 79
Rate: normal
Rhythm: ventricular paced
Ischemia: non-specific ST changes
*Purifying Plant Operator Interpretation
Rate: normal
Interpretation: abnormal
Heart Rate: 74
Rhythm: ventricular paced
*Critical Care Note
Total Time (30-74mins, 75-104mins- exclusive of procedures): Not Applicable
Data Reviewed
Review of Other/Old Records Reveals: Radiology Studies (Prior CT documenting size of abdominal wall hematoma)
Patient Management
Discussion with other providers: [employer] Officer (Cardiology)
ED Attending Note
-
Portions of this chart may have been created with voice recognition software.� Occasional wrong word or��sound alike� substitutions may have occurred due to the inherent limitations of voice recognition software.
Discharge Plan
Departure
Patient Disposition: Home (Routine Discharge)
Date of Disposition: 12/11/23
Time of Disposition: 16:36
Patient with high blood pressure during this ER visit?: No
Condition: Good
Covid-19: Not Applicable
Discharge Problem:
Abdominal wall hematoma
Instructions: Hematoma
Prescriptions:
No Action
tamsulosin 0.4 MG capsule
0.4 mg PO HS
atorvastatin [Lipitor] 40 mg Tablet
40 mg PO HS
acetaminophen [Tylenol] 325 mg Tablet
650 mg PO Q6HPRN MDD 3000 mg PRN (Reason: mild pain)
loperamide 2 mg Capsule
2 mg PO HS
magnesium hydroxide [Milk of Magnesia] 400 mg/5 mL Suspension
30 ml PO [id number] PRN (Reason: no bm on 3rd day)
duloxetine 20 mg Capsule,Delayed Release(Dr/Ec)
20 mg PO HS
ketoconazole 2 % Shampoo
1 applic TOPICAL MOTH
cyanocobalamin (vitamin B-12) 1,000 mcg Tablet
1,000 mcg PO DAILY
allopurinol 100 mg Tablet
100 mg PO DAILY
ferrous sulfate 325 mg (65 mg iron) Tablet
325 mg PO BID
alum-mag hydroxide-simeth [Mag-Al Plus] 200-200-20 mg/5 mL Suspension
30 ml PO Q4HPRN PRN (Reason: indigestion)
cholecalciferol (vitamin D3) [Vitamin D3] 25 mcg (1,000 unit) Tablet
25 mcg PO DAILY
PreserVision AREDS-2 250-90-40-1 mg Capsule
1 tab PO DAILY
amiodarone [Pacerone] 200 mg tablet
200 mg PO DAILY
metoprolol succinate 25 mg tablet extended release 24 hr
12.5 mg PO DAILY
loperamide 2 mg Capsule
2 mg PO DAILYPRN PRN (Reason: diarrhea)
Rx Instructions:
take 2 caps after first loose stool, then 1 cap after each loose stool
ketoconazole 2 % Cream
1 applic TOPICAL DAILY
vitamin E 268 mg (400 unit) Capsule
268 mg PO DAILY
oxycodone 5 mg Tablet
5 mg PO Q6HPRN PRN (Reason: moderate pain)
insulin lispro [Admelog SoloStar U-100 Insulin] 100 unit/mL Insulin Pen
0 sliding scale dose SC AC
Rx Instructions:
200-249=2units, 250-299=4units, 300-349=6units
Eliquis 2.5 mg Tablet
2.5 mg PO BID
Patient Comments:
hold for 2 weeks starting on 11/22/23
Referrals:
Terrence Ortiz MD [Active] - Follow up in 1 week
Patrick Graves, [Family Provider] - Follow up in 2-3 days
Fabian Stovall MD [Active] - Follow up in 1 week
Activity Restrictions/Additional Instructions:
RETURN TO THE EMERGENCY DEPARTMENT WITH ANY FEVERS, SEVERE ABDOMINAL PAIN, CHEST PAIN, SHORTNESS OF BREATH, SEVERE HEADACHE, NUMBNESS/TINGLING IN LOWER EXTREMITIES, WORSENING IN CURRENT SYMPTOMS OR ANY OTHER CONCERNS
-As discussed�you should discontinue your Eliquis until hematoma of your abdominal wall resolves. You should be in close contact with your clipper counters within the next week to discuss resuming your Eliquis. Do not resume Eliquis until instructed
by cardiology.
-If needed�please follow-up with general surgery to discuss hematoma. I will provide the information for you above.
-Follow-up with your primary care doctor within 48 hours for further evaluation and to assess size of hematoma.
-Stay well-hydrated.
Monitor your symptoms closely and return to the emergency department any acute worsening/new symptoms including change in mentation, increase in size of hematoma, or other concerns
Interventions
Interventions:
*Risk Screen - Suicide Last Done: 12/11/23 11:43
*General Assessment Last Done: 12/11/23 11:43
*Neglect/Abuse Screening Last Done: 12/11/23 11:43
ED- Fall Risk Assessment Last Done: 12/11/23 12:10
*ED COVID-19 Vaccine History Last Done: 12/11/23 11:43
*Nursing Disposition Last Done: 12/11/23 18:48
ED- Pulmonary Assessment Last Done: 12/11/23 12:09
ED- Cardiac Assessment Last Done: 12/11/23 12:09
Discharge Date and Time
Discharge Date/Time: 12/11/23 18:49
Print Language: MOROCCAN
[2023-12-11] MEDS: NSS 500 IV (12:19)
[2023-12-11 12:47] LABS: % Basophils 0.3 % (0-2); % Eosinophils 0.5 % (0-6); % Immature Granulocytes 0.7 % (0-0.5); % Lymphocytes 4.5 % (20.5-51.1); Absolute Eosinophils 0.1 10^3/uL (0-0.7); Absolute Immature Granulocytes 0.1 10^3/uL (0-0.05); Absolute Lymphocytes 0.4 10^3/uL (1.2-3.4); Absolute Monocytes 0.6 10^3/uL (0.1-0.6); Absolute Neutrophils 8.1 10^3/uL (1.4-6.5); Hematocrit 29.7 % (39.0-52.0); Hemoglobin 10.4 g/dL (13.0-18.0); Mean Corpuscular Hgb 30.7 pg (27.0-31.0); Mean Corpuscular Volume 87.6 fL (80.0-94.0); Mean Platelet Volume 9.2 fL (7.4-10.4); Nucleated Red Blood Cells % 0 % (-); Platelet Count 305 10^3/uL (130-400); Red Blood Cell Count 3.39 10^6/uL (4.70-6.10); Red Cell Dist. Width 15.7 % (11.5-14.5); White Blood Cell Count 9.2 10^3/uL (4.8-10.8)
[2023-12-11 13:13] LABS: Troponin I 0.051 ng/ml
[2023-12-11 13:29] LABS: ALT (SGPT) 18 U/L (0-50); AST (SGOT) 23 U/L (17-59); Albumin 2.9 g/dl (3.5-5.0); Alkaline Phosphatase 272 U/L (38-126); Blood Urea Nitrogen 24 mg/dl (9-20); Calcium 8.9 mg/dl (8.4-10.2); Carbon Dioxide 27 mmol/L (22-30); Chloride 98 mmol/L (98-107); Estimated Creatinine Clearance 69 ml/min; Glucose 164 mg/dl (70-99); Potassium 3.8 mmol/L (3.5-5.1); Sodium 136 mmol/L (135-145); Total Bilirubin 2.6 mg/dl (0.2-1.3); Total Protein 6.4 g/dl (6.3-8.2); eGFR > 60.00
== END 2023-12-11 18:49 | disposition home or self-care (01) ==
LOC: EMR 11:25
PROVIDERS: Physician Assistant; EMERGENCY PHYSICIAN Emergency Medicine; FAMILY PHYSICIAN Internal Medicine
DX: S30.1XXA Contusion of abdominal wall, initial encounter (principal); X58.XXXA Exposure to other specified factors, initial encounter; I48.91 Unspecified atrial fibrillation; E11.9 Type 2 diabetes mellitus without complications; E78.00 Pure hypercholesterolemia, unspecified; I10 Essential (primary) hypertension; Z79.01 Long term (current) use of anticoagulants; Z79.84 Long term (current) use of oral hypoglycemic drugs; Z96.643 Presence of artificial hip joint, bilateral; Z95.810 Presence of automatic (implantable) cardiac defibrillator; Z96.659 Presence of unspecified artificial knee joint; Z85.038 Personal history of other malignant neoplasm of large intestine; Z86.73 Personal history of transient ischemic attack (TIA), and cerebral infarction without residual deficits; Z87.891 Personal history of nicotine dependence; Z98.0 Intestinal bypass and anastomosis status; Z98.1 Arthrodesis status; Z91.013 Allergy to seafood
CPT/HCPCS: 99285; 96360; 93289; 76705; 80053; 84484; 85025; 93005

== ENCOUNTER → 2023-12-13 09:20 | Outpatient (REF) | payer MEDICARE, BC, SELFPAY ==
[2023-12-13 11:40] LABS: % Basophils 0.1 % (0-2); % Immature Granulocytes 0.7 % (0-0.5); % Lymphocytes 2.8 % (20.5-51.1); % Monocytes 3.3 % (1.7-9.3); % Neutrophils 93.1 % (42.2-75.2); Absolute Immature Granulocytes 0.1 10^3/uL (0-0.05); Absolute Lymphocytes 0.3 10^3/uL (1.2-3.4); Absolute Monocytes 0.4 10^3/uL (0.1-0.6); Absolute Neutrophils 11.2 10^3/uL (1.4-6.5); Hematocrit 30.3 % (39.0-52.0); Hemoglobin 10.4 g/dL (13.0-18.0); Mean Corp Hgb Conc. 34.3 g/dL (33.0-37.0); Mean Corpuscular Hgb 30.5 pg (27.0-31.0); Mean Corpuscular Volume 88.9 fL (80.0-94.0); Mean Platelet Volume 9.8 fL (7.4-10.4); Nucleated Red Blood Cells % 0.2 % (-); Platelet Count 316 10^3/uL (130-400); Red Blood Cell Count 3.41 10^6/uL (4.70-6.10); Red Cell Dist. Width 15.5 % (11.5-14.5); White Blood Cell Count 12.1 10^3/uL (4.8-10.8)
[2023-12-13 11:43] LABS: ALT (SGPT) 126 U/L (0-50); AST (SGOT) 150 U/L (17-59); Albumin 2.8 g/dl (3.5-5.0); Alkaline Phosphatase 1017 U/L (38-126); Blood Urea Nitrogen 30 mg/dl (9-20); Carbon Dioxide 22 mmol/L (22-30); Chloride 100 mmol/L (98-107); Glucose 177 mg/dl (70-99); Potassium 3.9 mmol/L (3.5-5.1); Sodium 135 mmol/L (135-145); Total Bilirubin 4.5 mg/dl (0.2-1.3); eGFR > 60.00
== END ==
LOC: OLABPATH 09:20
PROVIDERS: ATTENDING PHYSICIAN Internal Medicine
DX: I10 Essential (primary) hypertension (principal); I50.9 Heart failure, unspecified; N18.9 Chronic kidney disease, unspecified
CPT/HCPCS: 36415; 80053; 85025